=== PATIENT | female | born 1960 | race Caucasian/White ===

== ENCOUNTER 2022-08-23 11:31 | Emergency (ER) | payer OTHER ==
--- OUTSIDE RECORDS SUMMARY | 2022-08-23 11:35 | XMS REPORT | Continuity of Care Document ---
:1960 Author Organization [facility] t Address [address] [place] [address] [place] [id number] Care Team Providers Name Role Phone PCP, PATIENT DOES NOT HAVE A Primary Care Physician Unavaila Minna Patino Attending Clinician Unavailable RHIANNA BAUER Attending Clinician Unavailable Rhianna Michael Attending Clinician Doctor Unassigned, Dike Attending Clinician Unavailable Mellissa WILLS Attending Clinician Unavailable Mellissa Floyd Attending Clinician RHIANNA BAUER Admitting Clinician Unavailable Payers Payer Name Policy Type Policy Number Effective Date Expiration Date S ource [place]ICAID [place] [id number] 2021 00:00:00 Problems Condition Condition Condition Status Onset Resolution Last Treating Co mments Source Name Details Category Date Date Treatment Clinician Date [id number] Degenerati Problem Co mmon ve joint Spirit disease of - CHI low back [facility] [id number] Hx of iron Problem Co mmon deficiency Spirit anemia [facility] History of History of Problem C ommon asthma asthma [facility] Seasonal Chronic Problem Common allergic seasonal Spirit rhinitis allergic - CHI rhinitis [facility] [id number] Primary Problem Common hypertensi Spirit on [facility] [id number] Hyperlipid Problem Co mmon emia, Spirit [facility] [id number] Reactive Problem Commo n depression [facility] No known No known Disease Unive rs active active ity of problems problems [facility] Allergies, Adverse Reactions, Alerts Allergy Allergy Status Severity Reaction(s) Onset Inactive Treating Comm ents Source Name Type Date Date Clinician NAPROXEN DRUG Active Swelling Univer s INGREDI 3-15 ity of 00:00: [place] [facility] Naproxen Propensi Active Swelling Univ ers ty to 315 ity of adverse 00:00: [place] reaction [facility] PENICILL Drug Active Anaphylaxis Uni vers INS Class 3 ity of 00:00: [facility] MORPHINE DRUG Active N/V Univers INGREDI 05-31 ity of 00:00: [facility] Morphine Propensi Active Nausea Univer s ty to and/or 05-31 ity of adverse Vomiting 00:00: [place] reaction [facility] Penicill Propensi Active Anaphylaxis U nivers ins ty to 02 ity of adverse 00:00: [place] reaction 00 [facility] NO KNOWN Drug Active Univers ALLERGIE Class ity of S [facility] [id number] Drug Active shortness of Co mmon 85 allergy breath [facility] morphine morphine Active stomach Commo n upset [facility] Social History Social Habit Start Date Stop Date Quantity Comments Source History of Tobacco Current Smoker Co mmon [facility] Use [facility] Sex Assigned At Common Sp iesha - [facility] Exposure to Not sure [facility] SARS-CoV-2 (event) [facility] Branch Smoking Status Start Date Stop Date Source Unknown if ever smoked [facility] Current Smoker 2022-04-05 00:00:00 Common Spir t [facility] Medications Ordered Filled Start Stop Current Ordering Indication Dosage Frequency Signature Comments Components Source Medication Medication Date Date Medication? Clinician (SIG) Name Name Albuterol Albuterol No 1{puff_ 6xD Albuterol Sulfate HFA Sulfate HFA 1-05 as_need Sulfate 108 (90 108 (90 00:00: ed} HFA 108 Base) Base) 00 (90 Base) MCG/ACT MCG/ACT MCG/ACT Varenicline Varenicline 2022- No BID Vareniclin Tartrate 1 Tartrate 1 04-05 e Tartrate MG MG 00:00: 00:00 1 MG 00 :00 Varenicline Varenicline 0 2022- No Vareniclin Tartrate Tartrate 04-05 e Tartrate 0.5 MG X 11 0.5 MG X 11 00:00: 00:00 0.5 MG X & 1 MG X 42 & 1 MG X 42 00 :00 11 & 1 MG X 42 Sertraline Sertraline 2021-0 No 1{table QD Sertraline HCl 25 MG HCl 25 MG 6-13 t} HCl 25 MG 00:00: 00 Sertraline Sertraline 2021-0 No 1{table QD Sertraline HCl 25 MG HCl 25 MG 6-13 t} HCl 25 MG 00:00: 00 Sertraline Sertraline 2021-0 No 1{table QD Sertraline HCl 25 MG HCl 25 MG 6-13 t} HCl 25 MG 00:00: 00 Sertraline Sertraline 2021-0 No 1{table QD Sertraline HCl 25 MG HCl 25 MG 6-13 t} HCl 25 MG 00:00: 00 Sertraline Sertraline 2021-0 No 1{table QD Sertraline HCl 25 MG HCl 25 MG 6-13 t} HCl 25 MG 00:00: 00 Sertraline Sertraline 2021-0 No 1{table QD Sertraline HCl 25 MG HCl 25 MG 6-13 t} HCl 25 MG 00:00: 00 Sertraline Sertraline 2021-0 No 1{table QD Sertraline HCl 25 MG HCl 25 MG 6-13 t} HCl 25 MG 00:00: 00 Cetirizine Cetirizine 2021-0 No 1{table QD Cetirizine HCl 10 MG HCl 10 MG 6-02 t} HCl 10 MG 00:00: 00 Rosuvastati Rosuvastati 2021-0 No 1{table QD Rosuvastat n Calcium n Calcium -02 t} in Calcium 40 MG 40 MG 00:00: 40 MG 00 hydroCHLORO hydroCHLORO 2021-0 No 1{capsu QD hydroCHLOR thiazide thiazide 6-02 le_in_t Othiazide 12.5 MG 12.5 MG 00:00: he_morn 12.5 MG 00 ing} Cetirizine Cetirizine 2021-0 No 1{table QD Cetirizine HCl 10 MG HCl 10 MG 6-02 t} HCl 10 MG 00:00: 00 Rosuvastati Rosuvastati 2021-0 No 1{table QD Rosuvastat n Calcium n Calcium 6-02 t} in Calcium 40 MG 40 MG 00:00: 40 MG 00 hydroCHLORO hydroCHLORO 2021-0 No 1{capsu QD hydroCHLOR thiazide thiazide 6-02 le_in_t Othiazide 12.5 MG 12.5 MG 00:00: he_morn 12.5 MG 00 ing} hydroCHLORO hydroCHLORO 2021-0 No 1{capsu QD hydroCHLOR thiazide thiazide 6-02 le_in_t Othiazide 12.5 MG 12.5 MG 00:00: he_morn 12.5 MG 00 ing} Rosuvastati Rosuvastati 2021-0 No 1{table Rosuvastat n Calcium n Calcium 6-02 t} in Calcium 40 MG 40 MG 00:00: 40 MG 00 Cetirizine Cetirizine 2021-0 No 1{table QD Cetirizine HCl 10 MG HCl 10 MG 6-02 t} HCl 10 MG 00:00: 00 hydroCHLORO hydroCHLORO 2021-0 No 1{capsu QD hydroCHLOR thiazide thiazide 6-02 le_in_t Othiazide 12.5 MG 12.5 MG 00:00: he_morn 12.5 MG 00 ing} Rosuvastati Rosuvastati 2021-0 No 1{table Rosuvastat n Calcium n Calcium 6-02 t} in Calcium 40 MG 40 MG 00:00: 40 MG 00 Cetirizine Cetirizine 2021-0 No 1{table QD Cetirizine HCl 10 MG HCl 10 MG 6-02 t} HCl 10 MG 00:00: 00 hydroCHLORO hydroCHLORO 2021-0 No 1{capsu QD hydroCHLOR thiazide thiazide 6-02 le_in_t Othiazide 12.5 MG 12.5 MG 00:00: he_morn 12.5 MG 00 ing} Cetirizine Cetirizine 2021-0 No 1{table QD Cetirizine HCl 10 MG HCl 10 MG 6-02 t} HCl 10 MG 00:00: 00 Rosuvastati Rosuvastati 2021-0 No 1{table Rosuvastat n Calcium n Calcium 6-02 t} in Calcium 40 MG 40 MG 00:00: 40 MG 00 Cetirizine Cetirizine 2021-0 No 1{table QD Cetirizine HCl 10 MG HCl 10 MG 6-02 t} HCl 10 MG 00:00: 00 Rosuvastati Rosuvastati 2021-0 No 1{table Rosuvastat n Calcium n Calcium 6-02 t} in Calcium 40 MG 40 MG 00:00: 40 MG 00 Cetirizine Cetirizine 2021-0 No 1{table QD Cetirizine HCl 10 MG HCl 10 MG 6-02 t} HCl 10 MG 00:00: 00 Rosuvastati Rosuvastati 2021-0 No 1{table QD Rosuvastat n Calcium n Calcium 6-02 t} in Calcium 40 MG 40 MG 00:00: 40 MG 00 hydroCHLORO hydroCHLORO 2021-0 No 1{capsu QD hydroCHLOR thiazide thiazide 6-02 le_in_t Othiazide 12.5 MG 12.5 MG 00:00: he_morn 12.5 MG 00 ing} Cetirizine Cetirizine 2021-0 No 1{table QD Cetirizine HCl 10 MG HCl 10 MG 6-02 t} HCl 10 MG 00:00: 00 Rosuvastati Rosuvastati 2021-0 No 1{table QD Rosuvastat n Calcium n Calcium 6-02 t} in Calcium 40 MG 40 MG 00:00: 40 MG 00 hydroCHLORO hydroCHLORO 2021-0 No 1{capsu QD hydroCHLOR thiazide thiazide 6-02 le_in_t Othiazide 12.5 MG 12.5 MG 00:00: he_morn 12.5 MG 00 ing} Cetirizine Cetirizine 2021-0 No 1{table QD Cetirizine HCl 10 MG HCl 10 MG 6-02 t} HCl 10 MG 00:00: 00 Rosuvastati Rosuvastati 2021-0 No 1{table QD Rosuvastat n Calcium n Calcium 6-02 t} in Calcium 40 MG 40 MG 00:00: 40 MG 00 hydroCHLORO hydroCHLORO 2-0 No 1{capsu QD hydroCHLOR thiazide thiazide 6-02 le_in_t Othiazide 12.5 MG 12.5 MG 00:00: he_morn 12.5 MG 00 ing} Lisinopril Lisinopril 2-0 No 1{table QD Lisinopril 20 MG 20 MG 5-18 t} 20 MG 00:00: 00 Lisinopril Lisinopril 2022-0 No 1{table QD Lisinopril 20 MG 20 MG 5-18 t} 20 MG 00:00: 00 Lisinopril Lisinopril 2022-0 No 1{table QD Lisinopril 20 MG 20 MG 5-18 t} 20 MG 00:00: 00 Lisinopril Lisinopril 2022-0 No 1{table QD Lisinopril 20 MG 20 MG 5-18 t} 20 MG 00:00: 00 Lisinopril Lisinopril 2022-0 No 1{table QD Lisinopril 20 MG 20 MG 5-18 t} 20 MG 00:00: 00 Lisinopril Lisinopril 2022-0 No 1{table QD Lisinopril 20 MG 20 MG 5-18 t} 20 MG 00:00: 00 Lisinopril Lisinopril 2022-0 No 1{table QD Lisinopril 20 MG 20 MG 5-18 t} 20 MG 00:00: 00 Lisinopril Lisinopril 2022-0 No 1{table QD Lisinopril 20 MG 20 MG 5-18 t} 20 MG 00:00: 00 Lisinopril Lisinopril 2022-0 No 1{table QD Lisinopril 20 MG 20 MG 5-18 t} 20 MG 00:00: 00 Lisinopril Lisinopril 2022-0 No 1{table QD Lisinopril 20 MG 20 MG 5-18 t} 20 MG 00:00: 00 Lisinopril Lisinopril 2022-0 No 1{table QD Lisinopril 20 MG 20 MG 5-18 t} 20 MG 00:00: 00 naproxen 2022-0 2022- No [id number] 500mg Take 1 Univers (NAPROSYN) [id number] tablet by ity of 500 mg 00:00: 00:00 mouth 2 [place] tablet 00 :00 (two) Medical times Branch daily with meals. Tylenol 325 Tylenol 325 No 2{table 6xD Tylenol MG MG ts_as_n 325 MG eeded} Ibuprofen Ibuprofen No TID Ibuprofen 200 MG 200 MG 200 MG Kate Back Kate Back No [facility] Back & Body Pain & Body Pain & Body Ex St Ex St Pain Ex St 500-32.5 MG 500-32.5 MG 500-32.5 MG Tylenol 325 Tylenol 325 No 2{table 6xD Tylenol MG MG ts_as_n 325 MG eeded} Ibuprofen Ibuprofen No TID Ibuprofen 200 MG 200 MG 200 MG Kate Back Kate Back No [facility] Back & Body Pain & Body Pain & Body Ex St Ex St Pain Ex St 500-32.5 MG 500-32.5 MG 500-32.5 MG Tylenol 325 Tylenol 325 No 2{table 6xD Tylenol MG MG ts_as_n 325 MG eeded} Ibuprofen Ibuprofen No TID Ibuprofen 200 MG 200 MG 200 MG Kate Back Kate Back No [facility] Back & Body Pain & Body Pain & Body Ex St Ex St Pain Ex St 500-32.5 MG 500-32.5 MG 500-32.5 MG Tylenol 325 Tylenol 325 No 2{table 6xD Tylenol MG MG ts_as_n 325 MG eeded} Kate Back Kaet Back No [facility] Back & Body Pain & Body Pain & Body Ex St Ex St Pain Ex St 500-32.5 MG 500-32.5 MG 500-32.5 MG Ibuprofen Ibuprofen No TID Ibuprofen 200 MG 200 MG 200 MG Tylenol 325 Tylenol 325 No 2{table 6xD Tylenol MG MG ts_as_n 325 MG eeded} Sertraline Sertraline No 1{table QD Sertraline HCl 25 MG HCl 25 MG t} HCl 25 MG Ibuprofen Ibuprofen No TID Ibuprofen 200 MG 200 MG 200 MG Kate Back Kate Back No [facility] Back & Body Pain & Body Pain & Body Ex St Ex St Pain Ex St 500-32.5 MG 500-32.5 MG 500-32.5 MG hydroCHLORO hydroCHLORO No hydroCHLOR thiazide thiazide Othiazide 12.5 MG 12.5 MG 12.5 MG Tylenol 325 Tylenol 325 No 2{table 6xD Tylenol MG MG ts_as_n 325 MG eeded} Ibuprofen Ibuprofen No TID Ibuprofen 200 MG 200 MG 200 MG Kate Back Kate Back No [facility] Back & Body Pain & Body Pain & Body Ex St Ex St Pain Ex St 500-32.5 MG 500-32.5 MG 500-32.5 MG Sertraline Sertraline No 1{table QD Sertraline HCl 25 MG HCl 25 MG t} HCl 25 MG Escitalopra Escitalopra No Escitalopr m Oxalate 5 m Oxalate 5 am Oxalate MG MG 5 MG Tylenol 325 Tylenol 325 No 2{table 6xD Tylenol MG MG ts_as_n 325 MG eeded} Ibuprofen Ibuprofen No TID Ibuprofen 200 MG 200 MG 200 MG Kate Back Kate Back No [facility] & Body Pain & Body Pain & Body Ex St Ex St Pain Ex St 500-32.5 MG 500-32.5 MG 500-32.5 MG Tylenol 325 Tylenol 325 No 2{table 6xD Tylenol MG MG ts_as_n 325 MG eeded} Ibuprofen Ibuprofen No TID Ibuprofen 200 MG 200 MG 200 MG Kate Back Kate Back No [facility] Back & Body Pain & Body Pain & Body Ex St Ex St Pain Ex St 500-32.5 MG 500-32.5 MG 500-32.5 MG Tylenol 325 Tylenol 325 No 2{table 6xD Tylenol MG MG ts_as_n 325 MG eeded} Ibuprofen Ibuprofen No TID Ibuprofen 200 MG 200 MG 200 MG Kate Back Kate Back No [facility] Body Pain & Body Pain & Body Ex St Ex St Pain Ex St 500-32.5 MG 500-32.5 MG 500-32.5 MG Tylenol 325 Tylenol 325 No 2{table 6xD Tylenol MG MG ts_as_n 325 MG eeded} Ibuprofen Ibuprofen No TID Ibuprofen 200 MG 200 MG 200 MG Kate Back Kate Back No [facility] Pain & Body Pain & Body Ex St Ex St Pain Ex St 500-32.5 MG 500-32.5 MG 500-32.5 MG Tylenol 325 Tylenol 325 No 2{table 6xD Tylenol MG MG ts_as_n 325 MG eeded} Ibuprofen Ibuprofen No TID Ibuprofen 200 MG 200 MG 200 MG Kate Back Kate Back No [facility] Body Pain & Body Ex St Ex St Pain Ex St 500-32.5 MG 500-32.5 MG 500-32.5 MG Immunizations Ordered Immunization Filled Immunization Date Status Commen ts Source Name Name Flucelvax - single Flucelvax - single 2022-04-05 Completed [facility] dose syringe dose syringe 15:48:00 - [facility] Pfizer COVID-19 Pfizer COVID-19 2021-03-21 Completed Comm on Spirit Vaccine Vaccine 14:18:00 [facility] Pfizer COVID-19 Pfizer COVID-19 2021-03-21 Completed [facility] Vaccine Vaccine 14:18:00 [facility] Pfizer COVID-19 Pfizer COVID-19 2021-03-21 Completed [facility] Vaccine Vaccine 14:18:00 [facility] Pfizer COVID-19 Pfizer COVID-19 2021-03-21 Completed [facility] Vaccine Vaccine 14:18:00 [facility] Pfizer COVID-19 Pfizer COVID-19 2021-03-21 Completed [facility] Vaccine Vaccine 14:18:00 [facility] Pfizer COVID-19 Pfizer COVID-19 2021-03-21 Completed [facility] Vaccine Vaccine 14:18:00 - [facility] Pfizer COVID-19 Pfizer COVID-19 2021-03-21 Completed [facility] Vaccine Vaccine 14:18:00 [facility] Pfizer COVID-19 Pfizer COVID-19 2021-03-21 Completed [facility] Vaccine Vaccine 14:18:00 [facility] Pfizer COVID-19 Pfizer COVID-19 2021-03-21 Completed [facility] Vaccine Vaccine 14:18:00 [facility] Pfizer COVID-19 Pfizer COVID-19 2021-03-21 Completed [facility] Vaccine Vaccine 14:18:00 [facility] Pfizer COVID-19 Pfizer COVID-19 2021-03-21 Completed Comm on [facility] Vaccine Vaccine 14:18:00 [facility] COVID-19 Vaccine COVID-19 Vaccine 2020-06-09 Completed Co mmon [facility] ([employer]) ([employer]) 14:17:00 [facility] COVID-19 Vaccine COVID-19 Vaccine 2020-06-09 Completed Co mmon [facility] ([facility]) ([employer]) 14:17:00 [facility] COVID-19 Vaccine COVID-19 Vaccine 2020-06-09 Completed Co mmon [facility] ([facility]) ([employer]) 14:17:00 [facility] COVID-19 Vaccine COVID-19 Vaccine 2020-06-09 Completed Co mmon [facility] ([facility]) ([employer]) 14:17:00 [facility] COVID-19 Vaccine COVID-19 Vaccine 2020-06-09 Completed Co mmon [facility] ([facility]) ([facility]) 14:17:00 [facility] COVID-19 Vaccine COVID-19 Vaccine 2020-06-09 Completed Co mmon [facility] ([facility]) ([facility]) 14:17:00 [facility] COVID-19 Vaccine COVID-19 Vaccine 2020-06-09 Completed Co mmon [facility] ([facility]) ([facility]) 14:17:00 [facility] COVID-19 Vaccine COVID-19 Vaccine 2020-06-09 Completed Co mmon [facility] ([facility]) ([facility]) 14:17:00 - [facility] COVID-19 Vaccine COVID-19 Vaccine 2020-06-09 Completed Co mmon [facility] ([facility]) ([facility]) 14:17:00 [facility] COVID-19 Vaccine COVID-19 Vaccine 2020-06-09 Completed Co mmon [facility] ([facility]) ([facility]) 14:17:00 [facility] COVID-19 Vaccine COVID-19 Vaccine 2020-06-09 Completed Co mmon [facility] ([facility]) ([facility]) 14:17:00 [facility] Vital Signs Vital Name Observation Time Observation Value Comments Source height 2022 15:40:00 60 [in_i] [facility] weight 2022 15:40:00 213.8 [lb_av] [facility] temperature 2022 15:40:00 97.2 [degF] [facility] bmi 2022 15:40:00 41.75 kg/m2 [facility] oximetry 2022 15:40:00 99 % [facility] respiratory rate 2022 15:40:00 17 /min Comm on [facility] blood pressure 2022 15:40:00 128 mm[Hg] [facility] systolic [facility] blood pressure 2022 15:40:00 72 mm[Hg] [facility] diastolic [facility] weight 2021-09-11 09:00:00 216.0 [lb_av] [facility] bmi 2021-09-11 09:00:00 42.18 kg/m2 [facility] height 2021-09-11 09:00:00 [facility] height 2021-09-11 14:20:00 [facility] weight 2021-09-11 14:20:00 216 [lb_av] [facility] bmi 2021-09-11 14:20:00 42.18 kg/m2 [facility] height 2021-08-31 11:20:00 60 [in_i] [facility] weight 2021-08-31 11:20:00 215 [lb_av] [facility] 2021-08-31 11:20:00 41.98 kg/m2 [facility] height 2021-08-16 13:20:00 [facility] weight 2021-08-16 13:20:00 216.8 [lb_av] [facility] temperature 2021-08-16 13:20:00 97.7 [degF] [facility] bmi 2021-08-16 13:20:00 42.34 kg/m2 [facility] oximetry 2021-08-16 13:20:00 94 % [facility] respiratory rate 2021-08-16 13:20:00 18 /min [facility] on [facility] blood pressure 2021-08-16 13:20:00 152 mm[Hg] [facility] - systolic [facility] blood pressure 2021-08-16 13:20:00 102 mm[Hg] [facility] - diastolic [facility] Systolic blood 2021-06-13 21:43:00 168 mm[Hg] Univer sity of pressure [facility] Diastolic blood 2021-06-13 21:43:00 88 mm[Hg] Unive rsity of pressure [facility] Heart rate 2021-06-13 21:43:00 88 /min Universi ty of [facility] Respiratory rate 2021-06-13 21:43:00 18 /min [facility] in 2021-06-13 21:43:00 100 /min University of Arterial blood by [facility] Pulse oximetry Branch Body temperature 2021-06-13 18:54:[address] [facility] Body height 2021-06-13 18:54:00 152.4 cm Universi ty [facility] Body weight 2021-06-13 18:54:00 97.523 kg Universi [facility] BMI 2021-06-13 18:54:00 41.99 kg/m2 Universi ty [facility] Systolic blood 2021-05-31 15:09:00 160 mm[Hg] Univer sity of [facility] Diastolic blood 2021-05-31 15:09:00 116 mm[Hg] Unive rsity of [facility] Heart rate 2021-05-31 15:09:00 92 /min Universi ty [facility] Body temperature 2021-05-31 15:09:[address] [facility] Respiratory rate 2021-05-31 15:09:00 18 /min [facility] Body weight 2021-05-31 15:09:00 98.158 kg Universi [facility] Oxygen saturation in 2021-05-31 15:09:00 100 /min University of Arterial blood by [facility] Pulse oximetry Branch Procedures Procedure Date / Time Performed Performing Clinician Sourc e XR HIPS 2 VW RIGHT 2021-06-13 20:07:51 Rhianna Bauer [facility] CONSENT/REFUSAL FOR 2021-06-13 18:48:35 Doctor [facility]igned, [facility] AND Name Medical Branch TREATMENT Encounters Start End Encounter Admission Attending Care Care Encounter Source Date/Time Date/Time Type Type Clinicians Facility Department ID 2022-07-17 Outpatient Riccardo, STBRI STLMLC [id number] Common 14:16:02 Minna [address] [facility] 2022-04-05 Outpatient White, STDANILC STLMLC [id number] Common 15:36:01 Minna 67951 [facility] 2022-04-03 Outpatient White, STLMLC STLMLC [id number] Common 14:28:01 Minna 12127 [facility] 2022-03-22 Outpatient White, STDANILC STLMLC [id number] Common 10:03:01 Minna [facility] 2022-03-05 Outpatient White, STDANILC STLMLC [id number] Common 09:59:02 Minna [facility] 2021-10-17 Outpatient White, STLMLC STLMLC [id number] Common 08:38:02 Minna [facility] 2021-09-06 Outpatient White, STLMLC STLMLC [id number] Common 14:03:01 Minna [facility] 2021-08-16 Outpatient Riccardo, STLMLC STLMLC [id number] Common 12:55:01 Minna [facility] 2022 2022 OFFICE STLMLC STLMLC [id number] Co mmon 00:00:00 00:00:00 VISIT [facility] 4 [facility] 2022-02-05 2022-02-05 (TEL) STLMLC STLMLC [id number] Co mmon 00:00:00 00:00:00 [facility] 2021-10-15 2021-10-15 (WEB) STLMLC STLMLC [id number] Co mmon 00:00:00 00:00:00 [facility] 2021-09-29 2021-09-29 (WEB) STLMLC STLMLC [id number] Co mmon 00:00:00 00:00:00 [facility] 2021-09-20 2021-09-20 (TEL) STLMLC STLMLC [id number] Co mmon 00:00:00 00:00:00 [facility] 2021-09-11 2021-09-11 (TEL) STLMLC STLMLC [id number] Co mmon 00:00:00 00:00:00 [facility] 2021-09-11 2021-09-11 SUB ANNUAL STLMLC STLMLC [id number] Common 00:00:00 00:00:00 MCR [facility] VISIT [facility] 2021-09-11 2021-09-11 OFFICE STLMLC STLMLC [id number] Co mmon 00:00:00 00:00:00 VISIT EST Spir it PT LEVEL 3 - [facility] 2021-08-31 2021-08-31 OFFICE STLMLC STLMLC [id number] Co mmon 00:00:00 00:00:00 VISIT EST Spir it PT LEVEL 3 - [facility] 2021-08-25 2021-08-25 (TEL) STLMLC STLMLC [id number] Co mmon 00:00:00 00:00:00 [facility] 2021-08-16 2021-08-16 OFFICE STLMLC STLMLC [id number] Co mmon 00:00:00 00:00:00 VISIT NEW Spir it PT LEVEL 4 - [facility] 2021-06-13 2021-06-13 Emergency X JUANCARLOS [facility] ERT [id number] Univers 13:56:00 16:54:00 RHIANNA nogueira [facility] 2021-06-13 2021-06-13 Emergency Juancarlos [facility] [id number] Univers 13:56:00 16:54:00 Rhianna Kong PIERRE PART [id number] i ty [facility] [id number] [facility] [phone] [place] [address] Branch 2021-06-13 2021-06-13 Orders Doctor SOMMER [id number] Univers 00:00:00 00:00:00 Only Unassigned, HE [id number] ity of Dike [facility] [id number] [facility] [phone] [place] [address] Branch 2021-05-31 2021-05-31 Emergency X Mellissa WILLS [facility] ERT [id number] Univers 09:11:00 12:05:00 ity of [facility] 2021-05-31 2021-05-31 Emergency Mellissa Wills [facility] [id number] Univers 09:11:00 12:05:00 Shirin ENCINAS [id number] i ty of [place] [id number] [facility] [phone] [place] [address] Branch Results This patient has no known results.
[2022-08-23] MEDS ORDERED: IBUPROFEN 400 MG TAB ONE (12:01)
[2022-08-23] MEDS ORDERED: HYDROCODONE/APAP 5/325 MG TAB ONE (12:01)
[2022-08-23 12:26] LABS: SARS-CoV-2 Antigen Rapid Res Negative (Negative)
[2022-08-23] MEDS ORDERED: AZITHROMYCIN 250 MG TAB ONE (12:44)
--- NOTE | 2022-08-23 12:47 | ER ---
Nurse's Notes [facility] Name: Marilu Walters Age: 62 yrs Sex: Female : 1960 Arrival Date: 08/23/2022 Time: 11:31 Bed 13 Private MD: Diagnosis: Streptococcal pharyngitis;Acute bronchiolitis due to respiratory syncytial virus Presentation: 08/23 11:39 Chief complaint: Patient states: Body aches, malaise, sore throat, congested "not nj1 really coughing". Coronavirus screen: Vaccine status: Patient reports receiving the 2nd dose of the covid vaccine. Ebola Screen: Patient denies travel to an Ebola-affected area in the 21 days before illness onset. Initial Sepsis Screen: Does the patient meet any 2 criteria? HR > 90 bpm. No. Patient's initial sepsis screen is negative. Does the patient have a suspected source of infection? No. Patient's initial sepsis screen is negative. Risk Assessment: Do you want to hurt yourself or someone else? Patient reports no desire to harm self or others. Onset of symptoms was August 22, 2022 at 23:59. 11:39 Acuity: ANTONY 3 nj1 11:39 Method Of Arrival: Ambulatory nj1 Historical: - Allergies: 11:45 PENICILLINS; nj1 11:45 Morphine; nj1 - PMHx: 11:45 Hypertensive disorder; Depressive disorder; nj1 - PSHx: 11:46 Tubal ligation; Hysterectomy; R knee meniscus repair; Back surgery; nj1 - Immunization history:: Client reports receiving the 2nd dose of the Covid vaccine. - Social history:: Smoking status: Patient/guardian denies using tobacco, Stopped _ months ago 6. Screenin:07 [place] ED Fall Risk Assessment (Adult) History of falling in the last 3 months, vg1 including since admission No falls in past 3 months (0 pts). Abuse screen: Denies threats or abuse. Denies injuries from another. Nutritional screening: No deficits noted. Tuberculosis screening: No symptoms or risk factors identified. Assessment: 12:07 General: Appears in no apparent distress. uncomfortable, Behavior is calm, cooperative. vg1 Pain: Complains of pain in generalize body Pain currently is 10 out of 10 on a pain scale. Pain began at midnight. Neuro: Level of Consciousness is awake, alert, obeys commands, Oriented to person, place, time, situation. Cardiovascular: Patient's skin is warm and dry. Respiratory: Airway is patent Respiratory effort is even, unlabored, Breath sounds are clear bilaterally. Derm: Skin is pink, warm \\T\\ dry. Musculoskeletal: Circulation, motion, and sensation intact. 13:13 Reassessment: Patient appears in no apparent distress at this time. Patient and/or vg1 family updated on plan of care and expected duration. Pain level reassessed. Patient is alert, oriented x 3, equal unlabored respirations, skin warm/dry/pink. Patient states feeling better. Vital Signs: 11:39 BP 112 / 91; Pulse 124; Resp 20; Temp 100.2(O); Pulse Ox 95% ; Weight 95.25 kg; Height nj1 5 ft. 0 in. ; Pain 10/10; 12:08 BP 113 / 66; Pulse 111; Resp 20; Pulse Ox 97% on R/A; vg1 13:13 BP 123 / 64; Pulse 100; Resp 16; Pulse Ox 97% on R/A; vg1 11:39 Body Mass Index 41.01 (95.25 kg, 152.4 cm) nj1 11:39 Pain Scale: Adult nc1 ED Course: 11:34 Patient arrived in ED. mr 11:37 Deejay Bhakta MD is Attending Physician. bs3 11:37 [facility]i Acu[facility] F[facility]-C [facility]. snw 11:45 Triage completed. nj1 11:47 Arm band placed on right wrist. nj1 11:51 Maureen Sainz, RN is Primary Nurse. vg1 12:04 Strep Sent. vg1 12:04 SARS RAPID Sent. vg1 12:04 RSV Sent. vg1 12:04 Flu Sent. vg1 12:07 Patient has correct armband on for positive identification. Bed in low position. Call vg1 light in reach. Side rails up X 1. Door closed. Lights dimmed. 12:07 No provider procedures requiring assistance completed. Patient did not have IV access vg1 during this emergency room visit. Administered Medications: 12:00 Drug: HYDROcodone-acetaminophen PO 5 mg-325 mg 1 tabs Route: PO; vg1 13:13 Follow up: Response: Temperature is decreased; Pain is decreased vg1 12:00 Drug: Ibuprofen PO 400 mg Route: PO; vg1 13:13 Follow up: Response: Temperature is decreased; Pain is decreased vg1 12:39 Drug: AZITHromycin PO 500 mg Route: PO; kc6 13:12 Follow up: Response: No adverse reaction vg1 Medication: 12:07 VIS not applicable for this client. vg1 Outcome: 12:46 Discharge ordered by . susana 13:13 Discharged to home ambulatory. vg1 13:13 Condition: good 13:13 Discharge instructions given to patient, Instructed on discharge instructions, follow up and referral plans. medication usage, Demonstrated understanding of instructions, follow-up care, medications, Prescriptions given X 4. 13:14 Patient left the ED. vg1 Signatures: Meri Acuña, JEWEL STRINGER-C JEWEL STRINGER-Csnw Sharon Ribera Victoria, RN RN vg1 Isis Perales RN RN kc6 Deejay Bhakta MD MD bs3 Elidia Winters RN RN nj1
--- NOTE | 2022-08-23 12:47 | EDPHYS ---
Physician Documentation [facility] Name: Marilu Walters Age: 62 yrs Sex: Female : 1960 Arrival Date: 08/23/2022 Time: 11:31 Bed 13 Private MD: ED Physician Deejay Bhakta HPI: 08/23 11:44 This 62 yrs old Female presents to ER via Unassigned with complaints of Flu Symptoms. snw 11:44 The patient or guardian reports flu symptoms, low-grade fever, myalgias, no appetite. snw Onset: The symptoms/episode began/occurred suddenly, at 00:00. Modifying factors: The symptoms are alleviated by nothing. the symptoms are aggravated by nothing. Severity of symptoms: At their worst the symptoms were moderate. The patient has not experienced similar symptoms in the past. It is unknown whether or not the patient has recently seen a physician. grandson began having fever three days ago. Historical: - Allergies: 11:45 PENICILLINS; nj1 11:45 Morphine; nj1 - PMHx: 11:45 Hypertensive disorder; Depressive disorder; nj1 - PSHx: 11:46 Tubal ligation; Hysterectomy; R knee meniscus repair; Back surgery; nj1 - Immunization history:: Client reports receiving the 2nd dose of the Covid vaccine. - Social history:: Smoking status: Patient/guardian denies using tobacco, Stopped _ months ago 6. ROS: 11:44 Eyes: Negative for injury, pain, redness, and discharge. snw 11:44 Neck: Negative for injury, pain, and swelling, Cardiovascular: Negative for chest pain, palpitations, and edema, Respiratory: Negative for shortness of breath, cough, wheezing, and pleuritic chest pain, Abdomen/GI: Negative for abdominal pain, nausea, vomiting, diarrhea, and constipation, Back: Negative for injury and pain, : Negative for injury, bleeding, discharge, and swelling, MS/Extremity: Negative for injury and deformity, Skin: Negative for injury, rash, and discoloration, Neuro: Negative for headache, weakness, numbness, tingling, and seizure, Psych: Negative for depression, anxiety, suicide ideation, homicidal ideation, and hallucinations. 11:44 Constitutional: Positive for body aches, chills, fever, malaise. 11:44 ENT: Positive for sore throat. Exam: 11:42 Head/Face: Normocephalic, atraumatic. Eyes: Pupils equal round and reactive to light, snw extra-ocular motions intact. Lids and lashes normal. Conjunctiva and sclera are non-icteric and not injected. Cornea within normal limits. Periorbital areas with no swelling, redness, or edema. 11:42 Neck: Trachea midline, no thyromegaly or masses palpated, and no cervical lymphadenopathy. Supple, full range of motion without nuchal rigidity, or vertebral point tenderness. No Meningismus. Chest/axilla: Normal chest wall appearance and motion. Nontender with no deformity. No lesions are appreciated. 11:42 Respiratory: Lungs have equal breath sounds bilaterally, clear to auscultation and percussion. No rales, rhonchi or wheezes noted. No increased work of breathing, no retractions or nasal flaring. Abdomen/GI: Soft, non-tender, with normal bowel sounds. No distension or tympany. No guarding or rebound. No evidence of tenderness throughout. Back: No spinal tenderness. No costovertebral tenderness. Full range of motion. Skin: Warm, dry with normal turgor. Normal color with no rashes, no lesions, and no evidence of cellulitis. MS/ Extremity: Pulses equal, no cyanosis. Neurovascular intact. Full, normal range of motion. Neuro: Awake and alert, GCS 15, oriented to person, place, time, and situation. Cranial nerves II-XII grossly intact. Motor strength 5/5 in all extremities. Sensory grossly intact. Cerebellar exam normal. Normal gait. Psych: Awake, alert, with orientation to person, place and time. Behavior, mood, and affect are within normal limits. 11:42 Constitutional: The patient appears alert, awake, anxious, febrile, uncomfortable. 11:42 ENT: External ear(s): are unremarkable, Ear canal(s): are normal, TM's: are normal, Nose: Nasal mucosa: edematous, Mouth: is normal, Posterior pharynx: erythema, that is moderate, Voice: is normal. 11:42 Cardiovascular: Rate: tachycardic, Rhythm: regular, Pulses: no pulse deficits are appreciated. Vital Signs: 11:39 BP 112 / 91; Pulse 124; Resp 20; Temp 100.2(O); Pulse Ox 95% ; Weight 95.25 kg; Height nj1 5 ft. 0 in. ; Pain 10/10; 12:08 BP 113 / 66; Pulse 111; Resp 20; Pulse Ox 97% on R/A; vg1 13:13 BP 123 / 64; Pulse 100; Resp 16; Pulse Ox 97% on R/A; vg1 11:39 Body Mass Index 41.01 (95.25 kg, 152.4 cm) nj1 11:39 Pain Scale: Adult nj1 MDM: 11:36 Patient medically screened. bs3 12:53 Differential diagnosis: bronchitis, flu, URI. Data interpreted: Pulse oximetry: on room snw air is 97 %. Interpretation: normal. Data reviewed: vital signs, nurses notes. I considered the following discharge prescriptions or medication management in the emergency department Medications were administered in the Emergency Department. See MAR. Counseling: I had a detailed discussion with the patient and/or guardian regarding: the historical points, exam findings, and any diagnostic results supporting the discharge/admit diagnosis, lab results, the need for outpatient follow up, for definitive care, to return to the emergency department if symptoms worsen or persist or if there are any questions or concerns that arise at home. Response to treatment: the patient's symptoms have mildly improved after treatment. Special discussion: Based on the history and exam findings, there is no indication for further emergent testing or inpatient evaluation. I discussed with the patient/guardian the need to see the primary care provider for further evaluation of the symptoms. 08/23 11:42 Order name: Flu; Complete Time: 12:46 snw 08/23 11:42 Order name: RSV; Complete Time: 12:46 snw 08/23 11:42 Order name: SARS RAPID; Complete Time: 12:28 snw 08/23 11:44 Order name: Strep; Complete Time: 12:28 snw Administered Medications: 12:00 Drug: HYDROcodone-acetaminophen PO 5 mg-325 mg 1 tabs Route: PO; vg1 13:13 Follow up: Response: Temperature is decreased; Pain is decreased vg1 12:00 Drug: Ibuprofen PO 400 mg Route: PO; vg1 13:13 Follow up: Response: Temperature is decreased; Pain is decreased vg1 12:39 Drug: AZITHromycin PO 500 mg Route: PO; kc6 13:12 Follow up: Response: No adverse reaction vg1 Disposition Summary: 08/23/22 12:46 Discharge Ordered Location: Home snw Condition: Stable snw Diagnosis - Streptococcal pharyngitis snw - Acute bronchiolitis due to respiratory syncytial virus snw Followup: snw - With: Emergency Department - When: As needed - Reason: Worsening of condition Followup: snw - With: Private Physician - When: 2 - 3 days - Reason: Recheck today's complaints, Continuance of care, Re-evaluation by your physician Discharge Instructions: - Discharge Summary Sheet snw - Respiratory Syncytial Virus Infection, Pediatric snw - Strep Throat, Adult snw - Rehydration, Adult snw Forms: - Work release form snw - Medication Reconciliation Form snw - Thank You Letter snw - Antibiotic Education snw - Prescription Opioid Use snw Prescriptions: - Prednisone 20 mg Oral Tablet - take 2 tablets by ORAL route once daily for 5 days; 10 tablet; Refills: 0, snw Product Selection Permitted - Pepcid 20 mg Oral Tablet - take 1 tablet by ORAL route once daily; 20 tablet; Refills: 0, Product snw Selection Permitted - promethazine 25 mg Oral Tablet - take 1 tablet by ORAL route every 6 hours As needed; 20 tablet; Refills: 0, snw Product Selection Permitted - Zithromax 500 mg Oral Tablet - take 1 tablet by ORAL route once daily for 5 days; 5 tablet; Refills: 0, snw Product Selection Permitted Signatures: Dispatcher [employer] Meri Lam FNP-C UPPER INSPECTOR-Csnw Maureen Sainz RN RN vg1 Isis Perales RN RN kc6 Deejay Bhakta MD MD bs3 Elidia Winters RN RN nj1
[2022-08-23 13:30] VITALS: TEMP 100.2
[2022-08-23 13:32] VITALS: O2SAT 97
[2022-08-23 13:34] VITALS: BP 123/64
== END 2022-08-23 13:14 | disposition home or self-care (01) ==
LOC: ER 11:31
DX: J02.0 Streptococcal pharyngitis (principal); J21.0 Acute bronchiolitis due to respiratory syncytial virus; I10 Essential (primary) hypertension; Z20.822 Contact with and (suspected) exposure to COVID-19; Z88.0 Allergy status to penicillin; Z88.5 Allergy status to narcotic agent
CPT/HCPCS: 36415; 87081; 87804; 87807; 87811; 99284

== ENCOUNTER 2022-09-09 17:53 | Observation (INO) | payer OTHER ==
--- OUTSIDE RECORDS SUMMARY | 2022-09-09 17:56 | XMS REPORT | Continuity of Care Document ---
:[address] [facility] t Address [address] [place] [address] [place] [id number] Care Team Providers Name Role Phone PCP, PATIENT DOES NOT HAVE A Primary Care Physician Unavaila Minna Patino Attending Clinician Unavailable RHIANNA BAUER Attending Clinician Unavailable Rhianna Michael Attending Clinician Doctor Unassigned, [place] Attending Clinician Unavailable Mellissa WILLS Attending Clinician Unavailable Mellissa Floyd Attending Clinician RHIANNA BAUER Admitting Clinician Unavailable Payers Payer Name Policy Type Policy Number Effective Date Expiration Date S ource [place] [id number] 2021 00:00:00 Problems Condition Condition Condition Status Onset Resolution Last Treating Co mments Source Name Details Category Date Date Treatment Clinician Date [id number] Degenerati Problem Co mmon ve joint Spirit disease of - [facility] low back [facility] [id number] Hx of iron Problem Co mmon deficiency Spirit anemia [facility] History of History of Problem C ommon asthma asthma [facility] Seasonal Chronic Problem Common allergic seasonal Spirit rhinitis allergic - [facility] rhinitis [facility] [id number] Primary Problem Common hypertensi Spirit on [facility] [id number] Hyperlipid Problem Co mmon emia, [facility] [id number] Reactive Problem Commo n depression [facility] No known No known Disease Unive rs active active ity of problems problems [facility] Allergies, Adverse Reactions, Alerts Allergy Allergy Status Severity Reaction(s) Onset Inactive Treating Comm ents Source Name Type Date Date Clinician NAPROXEN DRUG Active Swelling Univer s INGREDI 3-15 ity of 00:00: [place] 00 [facility] Naproxen Propensi Active Swelling Univ ers ty to 06-13 ity of adverse 00:00: [place] reaction [facility] PENICILL Drug Active Anaphylaxis Uni vers INS Class 05-31 ity of 00:00: [place] [facility] MORPHINE DRUG Active N/V Univers INGREDI 05-31 ity of 00:00: 00 [facility] Morphine Propensi Active Nausea Univer s ty to and/or 05-31 ity of adverse Vomiting 00:00: [place] reaction Medical [facility] Penicill Propensi Active Anaphylaxis U nivers ins ty to 05-31 ity of adverse 00:00: [place] reaction 00 [facility] NO KNOWN Drug Active Univers ALLERGIE Class ity of S [facility] [id number] Drug Active shortness of Co mmon 85 allergy breath [facility] morphine morphine Active stomach Commo n upset [facility] Social History Social Habit Start Date Stop Date Quantity Comments Source History of Tobacco Current Smoker Co mmon [facility] Use [facility] Sex Assigned At Common Sp iesha - [facility] Exposure to Not sure [facility] SARS-CoV-2 (event) [facility] Branch Smoking Status Start Date Stop Date Source Unknown if ever smoked [facility] Current Smoker 2022-04-05 00:00:[address] [facility] Medications Ordered Filled Start Stop Current Ordering [...] 00:00 1 MG 00 :00 Varenicline Varenicline 2022-0 3- No Vareniclin Tartrate Tartrate 04-05 e Tartrate [...] he_morn 12.5 MG 00 ing} Cetirizine Cetirizine 0 No 1{table QD Cetirizine HCl 10 MG [...] he_morn 12.5 MG 00 ing} hydroCHLORO hydroCHLORO 0 No 1{capsu QD hydroCHLOR thiazide thiazide 6-02 le_in_t Othiazide 12.5 MG 12.5 MG 00:00: he_morn 12.5 MG 00 ing} Rosuvastati Rosuvastati 2021-0 No 1{table Rosuvastat n Calcium n Calcium 6- t} in Calcium 40 MG 40 MG 00:00: 40 MG 00 Cetirizine Cetirizine 0 No 1{table QD Cetirizine HCl 10 MG HCl 10 MG 6-02 t} HCl 10 MG 00:00: 00 hydroCHLORO hydroCHLORO 2021-0 No 1{capsu QD hydroCHLOR thiazide thiazide 6-02 le_in_t Othiazide 12.5 MG 12.5 MG 00:00: he_morn 12.5 MG 00 ing} Rosuvastati Rosuvastati 2021-0 No 1{table Rosuvastat n Calcium n Calcium 6-02 t} in Calcium 40 MG 40 MG 00:00: 40 MG 00 Cetirizine Cetirizine 0 No 1{table QD Cetirizine HCl 10 MG HCl 10 MG 6-02 t} HCl 10 MG 00:00: 00 hydroCHLORO hydroCHLORO 2021-0 No 1{capsu QD hydroCHLOR thiazide thiazide 6-02 le_in_t Othiazide 12.5 MG 12.5 MG 00:00: he_morn 12.5 MG 00 ing} Cetirizine Cetirizine 0 No 1{table QD Cetirizine HCl 10 MG [...] MG 00:00: 40 MG 00 Cetirizine Cetirizine 0 No 1{table QD Cetirizine HCl 10 MG [...] he_morn 12.5 MG 00 ing} Cetirizine Cetirizine 0 No 1{table QD Cetirizine HCl 10 MG [...] he_morn 12.5 MG 00 ing} Cetirizine Cetirizine 0 No 1{table QD Cetirizine HCl 10 MG HCl 10 MG 6-02 t} HCl 10 MG 00:00: 00 Rosuvastati Rosuvastati 2021-0 No 1{table QD Rosuvastat n Calcium n Calcium 6-02 t} in Calcium 40 MG 40 MG 00:00: 40 MG 00 hydroCHLORO hydroCHLORO 2-0 No 1{capsu QD hydroCHLOR thiazide thiazide 08-31 le_in_t Othiazide 12.5 MG 12.5 MG 00:00: he_morn 12.5 MG 00 ing} Lisinopril Lisinopril 2022-0 No 1{table QD Lisinopril [...] MG 00:00: 00 naproxen 2022-0 2022- No [id number] 500mg Take 1 Univers (NAPROSYN) 3-15 03-15 9102 tablet by mirlande of 500 mg 00:00: 00:00 mouth 2 [...] MG ts_as_n 325 MG eeded} Kate Back Kate Back No Kate Back [...] Spirit dose syringe dose syringe 15:48:00 - [facility] Pfizer COVID-19 Pfizer COVID-19 2021-03-21 Completed Comm on Spirit Vaccine Vaccine 14:18:00 [facility] Pfizer COVID-19 Pfizer COVID-19 2021-03-21 Completed Comm on Spirit Vaccine Vaccine 14:18:00 [facility] Pfizer COVID-19 Pfizer COVID-19 2021-03-21 Completed Comm on Spirit Vaccine Vaccine 14:18:00 [facility] Pfizer COVID-19 Pfizer COVID-19 2021-03-21 Completed Comm on Spirit Vaccine Vaccine 14:18:00 [facility] Pfizer COVID-19 Pfizer COVID-19 2021-03-21 Completed Comm on Spirit Vaccine Vaccine 14:18:00 [facility] Pfizer COVID-19 Pfizer COVID-19 2021-03-21 Completed Comm on Spirit Vaccine Vaccine 14:18:00 - [facility] Pfizer COVID-19 Pfizer COVID-19 2021-03-21 Completed Comm on Spirit Vaccine Vaccine 14:18:00 [facility] Pfizer COVID-19 Pfizer COVID-19 2021-03-21 Completed Comm on Spirit Vaccine Vaccine 14:18:00 [facility] Pfizer COVID-19 Pfizer COVID-19 2021-03-21 Completed Comm on Spirit Vaccine Vaccine 14:18:00 [facility] Pfizer COVID-19 Pfizer COVID-19 2021-03-21 Completed Comm on Spirit Vaccine Vaccine 14:18:00 [facility] Pfizer COVID-19 Pfizer COVID-19 2021-03-21 Completed Comm on Spirit Vaccine Vaccine 14:18:00 [facility] COVID-19 Vaccine COVID-19 Vaccine 2020-06-09 Completed Co mmon Spirit ([place]) ([place]) 14:17:00 [facility] COVID-19 Vaccine COVID-19 Vaccine 2020-06-09 Completed Co mmon [facility] ([place]) ([place]) 14:17:00 - [facility] COVID-19 Vaccine COVID-19 Vaccine 2020-06-09 Completed Co mmon [facility] ([place] ([place]) 14:17:00 [facility] COVID-19 Vaccine COVID-19 Vaccine 2020-06-09 Completed Co mmon [facility] ([place] ([facility]) 14:17:00 [facility] COVID-19 Vaccine COVID-19 Vaccine 2020-06-09 Completed Co mmon [facility] ([place]) ([place]) 14:17:00 - [facility] COVID-19 Vaccine COVID-19 Vaccine 2020-06-09 Completed Co mmon [facility] ([place] ([facility]) 14:17:00 [facility] COVID-19 Vaccine COVID-19 Vaccine 2020-06-09 Completed Co mmon [facility] ([place] ([place]) 14:17:00 [facility] COVID-19 Vaccine COVID-19 Vaccine 2020-06-09 Completed Co mmon [facility] ([place]) ([place]) 14:17:00 - [facility] COVID-19 Vaccine COVID-19 Vaccine 2020-06-09 Completed Co mmon [facility] ([place] ([facility]) 14:17:00 [facility] COVID-19 Vaccine COVID-19 Vaccine 2020-06-09 Completed Co mmon [facility] ([place] ([facility]) 14:17:00 [facility] COVID-19 Vaccine COVID-19 Vaccine 2020-06-09 Completed Co mmon [facility] ([place] ([place]) 14:17:00 [facility] Vital Signs Vital Name Observation Time Observation Value Comments Source height 2022 15:40:00 60 [in_i] [facility] weight 2022 15:40:00 213.8 [lb_av] [facility] temperature 2022 15:40:00 97.2 [degF] [facility] bmi 2022 15:40:00 41.75 kg/m2 [facility] oximetry 2022 15:40:00 99 % [facility] respiratory rate 2022 15:40:00 17 /min Comm on [facility] blood pressure 2022 15:40:00 128 mm[Hg] [facility] systolic [facility] blood pressure 2022 15:40:00 72 mm[Hg] [facility] diastolic [facility] weight 2021-09-11 09:00:00 216.0 [lb_av] [facility] bmi 2021-09-11 09:00:00 42.18 kg/m2 [facility] height 2021-09-11 09:00:00 [facility] height 2021-09-11 14:20:00 [facility] weight 2021-09-11 14:20:00 216 [lb_av] [facility] bmi 2021-09-11 14:20:00 42.18 kg/m2 [facility] height 2021-08-31 11:20:00 60 [in_i] [facility] weight 2021-08-31 11:20:00 215 [lb_av] [facility] bmi 2021-08-31 11:20:00 41.98 kg/m2 [facility] height 2021-08-16 13:20:00 [facility] weight 2021-08-16 13:20:00 216.8 [lb_av] [facility] temperature 2021-08-16 13:20:00 97.7 [degF] [facility] bmi 2021-08-16 13:20:00 42.34 kg/m2 [facility] oximetry 2021-08-16 13:20:00 94 % [facility] respiratory rate 2021-08-16 13:20:00 18 /min Comm on Spirit - [facility] blood pressure 2021-08-16 13:20:00 152 mm[Hg] [facility] - systolic [facility] blood pressure 2021-08-16 13:20:00 102 mm[Hg] [facility] - diastolic [facility] Systolic blood 2021-06-13 21:43:00 168 mm[Hg] Univer sity of pressure [facility] Diastolic blood 2021-06-13 21:43:00 88 mm[Hg] Unive rsity of pressure [facility] Heart rate 2021-06-13 21:43:00 88 /min Universi ty of [facility] Respiratory rate 2021-06-13 21:43:00 18 /min Univ ersity of [facility] Oxygen saturation in 2021-06-13 21:43:00 100 /min University of Arterial blood by [facility] Pulse oximetry Branch Body temperature 2021-06-13 18:54:00 35.78 Malorie Univ ersity of [facility] Body height 2021-06-13 18:54:00 152.4 cm [facility] Body weight 2021-06-13 18:54:00 97.523 kg [facility] BMI 2021-06-13 18:54:00 41.99 kg/m2 [facility] Systolic blood 2021-05-31 15:09:00 160 mm[Hg] Univer sity of pressure [facility] Diastolic blood 2021-05-31 15:09:00 116 mm[Hg] Unive rsity of pressure [facility] Heart rate 2021-05-31 15:09:00 92 /min [facility] Body temperature 2021-05-31 15:09:00 36.33 Malorie Univ ersity of [facility] Branch Respiratory rate 2021-05-31 15:09:00 18 /min Univ ersity of [facility] Body weight 2021-05-31 15:09:00 98.158 kg Universi ty [facility] Oxygen saturation in 2021-05-31 15:09:00 100 /min University of Arterial blood by [facility] [place] Pulse oximetry Branch Procedures Procedure Date / Time Performed Performing Clinician Ariane e XR HIPS 2 VW RIGHT 2021-06-13 20:07:51 Rhianna Bauer [facility] Branch CONSENT/REFUSAL FOR 2021-06-13 18:48:35 [facility] Branch TREATMENT Encounters Start End Encounter Admission Attending Care Care Encounter Source Date/Time Date/Time Type Type Clinicians Facility Department ID 2022-07-17 Outpatient Riccardo, STDANILC STLMLC [id number] Common 14:16:02 Minna 05298 [facility] 2022-04-05 Outpatient Jessamine, STLMLC STLMLC [id number] Common 15:36:01 Minna 42638 [facility] 2022-04-03 Outpatient Jessamine, STLMLC STLMLC [id number] Common 14:28:01 Minna 92292 [facility] 2022-03-22 Outpatient Jessamine, STDANILC STLMLC [id number] Common 10:03:01 Minna [facility] 2022-03-05 Outpatient Jessamine, STDANILC STLMLC [id number] Common 09:59:02 Minna [facility] 2021-10-17 Outpatient Jessamine, STLMLC STLMLC [id number] Common 08:38:02 Minna [facility] 2021-09-06 Outpatient Jessamine, STLMLC STLMLC [id number] Common 14:03:01 Minna [facility] 2021-08-16 Outpatient Jessamine, STLMLC STLMLC [id number] Common 12:55:01 Minna [facility] 2022 2022 OFFICE STLMLC STLMLC [id number] Co mmon 00:00:00 00:00:00 VISIT [facility] LEVEL 4 [facility] 2022-02-05 2022-02-05 (TEL) STLMLC STLMLC [id number] Co mmon 00:00:00 00:00:00 [facility] 2021-10-15 2021-10-15 (WEB) STLMLC STLMLC [id number] Co mmon 00:00:00 00:00:00 [facility] 2021-09-29 2021-09-29 (WEB) STLMLC STLMLC [id number] Co mmon 00:00:00 00:00:00 [facility] 2021-09-20 2021-09-20 (TEL) STLMLC STLMLC [id number] Co mmon 00:00:00 00:00:00 [facility] 2021-09-11 2021-09-11 (TEL) STLMLC STLMLC [id number] Co mmon 00:00:00 00:00:00 [facility] 2021-09-11 2021-09-11 SUB ANNUAL STLMLC STLMLC [id number] Common 00:00:00 00:00:00 MCR [facility] VISIT [facility] 2021-09-11 2021-09-11 OFFICE STLMLC STLMLC [id number] Co mmon 00:00:00 00:00:00 VISIT EST Spir it PT LEVEL [address] [facility] 2021-08-31 2021-08-31 OFFICE STLMLC STLMLC [id number] Co mmon 00:00:00 00:00:00 VISIT EST Spir it PT LEVEL [address] [facility] 2021-08-25 2021-08-25 (TEL) STLMLC STLMLC [id number] Co mmon 00:00:00 00:00:00 [facility] 2021-08-16 2021-08-16 OFFICE STLMLC STLMLC [id number] Co mmon 00:00:00 00:00:00 VISIT NEW Spir it PT LEVEL 4 - [facility] 2021-06-13 2021-06-[address] [facility] [id number] Univers 13:56:00 16:54:00 RHIANNA nogueira of [facility] 2021-06-13 2021-06-13 Emergency Juancarlos [facility] [id number] Univers 13:56:00 16:54:00 Rhianna Kong DEMAREST [id number] i [facility] [id number] [facility] [id number] [facility] 084 Branch 2021-06-13 2021-06-13 Orders Doctor SOMMER [id number] Univers 00:00:00 00:00:00 Only Unassigned, HE [id number] ity of [place] [facility] [id number] [facility] [phone] [facility] 009 Branch 2021-05-31 2021-05-31 Emergency X Mellissa WILLS [facility] ERT [id number] Univers 09:11:00 12:05:00 ity of [facility] 2021-05-31 2021-05-31 Emergency Mellissa Wills [facility] [id number] Univers 09:11:00 12:05:00 Shirin ENCINSA [id number] i ty of [place] [id number] [facility] [id number] [place] [id number] Branch Results This patient has no known results.
[2022-09-09 18:40] LABS: Hematocrit 33.3 % (36.0-45.0); Lymphocytes % 35.3 % (15.3-44.8); MCV 85.8 fL (80-100); MPV 7.1 fL (7.6-11.3); RBC Red Blood Cell Count 3.88 M/uL (3.86-4.86)
[2022-09-09 18:49] LABS: Potassium 3.6 mEq/L (3.5-5.1); Troponin High Sensitivity 4.9 pg/mL (<58.9)
--- NOTE | 2022-09-09 19:23 | RAD REPORT ---
EXAM DESCRIPTION: Bettye Single View09/09/2022 7:07 pm CLINICAL HISTORY: Chest pain COMPARISON: 2007 FINDINGS: 8 millimeter nodular opacity overlies right upper lobe. Remainder lungs appear clear. Heart is normal size IMPRESSION: 8 millimeter nodular opacity overlies the right upper lobe. This may represent a pulmona ry nodule or confluence of ribs and vessels. CT chest would be helpful for further evaluation
--- NOTE | 2022-09-09 19:35 | ER ---
Nurse's Notes [facility] Name: Marilu Walters Age: 62 yrs Sex: Female : 1960 Arrival Date: 09/09/2022 Time: 17:53 Bed 20 Private MD: Diagnosis: Chest pain, unspecified Presentation: 09/09 18:01 Chief complaint: Patient states: midsternal chest pain constant since 1130 today. iw Coronavirus screen: At this time, the client does not indicate any symptoms associated with coronavirus-19. Ebola Screen: Patient negative for fever greater than or equal to 101.5 degrees Fahrenheit, and additional compatible Ebola Virus Disease symptoms Patient denies exposure to infectious person. Patient denies travel to an Ebola-affected area in the 21 days before illness onset. No symptoms or risks identified at this time. Initial Sepsis Screen: Does the patient meet any 2 criteria? No. Patient's initial sepsis screen is negative. Does the patient have a suspected source of infection? No. Patient's initial sepsis screen is negative. Risk Assessment: Do you want to hurt yourself or someone else? Patient reports no desire to harm self or others. Onset of symptoms was September 09, 2022. 18:01 Method Of Arrival: Ambulatory iw 18:01 Acuity: ANTONY 2 iw Historical: - Allergies: 18:01 Morphine; iw 18:01 PENICILLINS; iw - PMHx: 18:01 depressive disorder; Hypertensive disorder; Hypercholesterolemia; iw - PSHx: 18:03 back surgery; hysterectomy; R knee meniscus repair; tubal ligation; iw - Immunization history:: Adult Immunizations up to date. - Social history:: Smoking status: Patient/guardian denies using tobacco, Stopped _ months ago 3. Screenin:30 [facility] ED Fall Risk Assessment (Adult) History of falling in the last 3 months, nj1 including since admission No falls in past 3 months (0 pts) Confusion or Disorientation No (0 pts) Intoxicated or Sedated No (0 pts) Impaired Gait No (0 pts) Mobility Assist Device Used No (0 pt) Altered Elimination No (0 pt) Score/Fall Risk Level 0 - 2 = Low Risk Oriented to surroundings, Maintained a safe environment, Hourly rounding (assess needs \T\ fall precautionary measures) done. Abuse screen: Denies threats or abuse. Denies injuries from another. Nutritional screening: No deficits noted. Tuberculosis screening: No symptoms or risk factors identified. Assessment: 18:30 General: Appears in no apparent distress. comfortable, Behavior is calm, cooperative, nj1 appropriate for age. Pain: Complains of pain in chest Pain does not radiate. Pain currently is 4 out of 10 on a pain scale. Pain began Around noon. Neuro: Level of Consciousness is awake, alert, obeys commands, Oriented to person, place, time, situation. 18:30 Cardiovascular: Reports chest pain, Patient's skin is warm and dry. Respiratory: Airway nj1 is patent Respiratory effort is even, unlabored. 19:25 Reassessment: Patient appears in no apparent distress at this time. Patient and/or nj1 family updated on plan of care and expected duration. Pain level reassessed. Patient is alert, oriented x 3, equal unlabored respirations, skin warm/dry/pink. 21:15 Reassessment: Patient appears in no apparent distress at this time. Patient and/or nj1 family updated on plan of care and expected duration. Pain level reassessed. Patient is alert, oriented x 3, equal unlabored respirations, skin warm/dry/pink. Vital Signs: 18:02 BP 172 / 74; Pulse 84; Resp 16; Pulse Ox 97% on R/A; Weight 95.25 kg; Height 5 ft. 0 iw in. ; Pain 4/10; 19:25 BP 146 / 68; Pulse 76; Resp 14; Pulse Ox 99% ; Pain 4/10; nj1 21:13 BP 163 / 81; Pulse 74; Resp 21; Pulse Ox 98% ; Pain 4/10; nj1 18:02 Body Mass Index 41.01 (95.25 kg, 152.4 cm) iw 18:02 Pain Scale: Adult iw 19:25 Pain Scale: Adult nj1 21:13 Pain Scale: Adult nj1 ED Course: 17:55 Patient arrived in ED. ts1 18:01 Triage completed. iw 18:02 Arm band placed on. iw 18:05 Sandra Kennedy FNP-C is PHCP. kb 18:05 Vaibhav Che MD is Attending Physician. kb 18:17 Elidia Winters RN is Primary Nurse. nj1 18:25 Inserted saline lock: 22 gauge in left forearm, using aseptic technique. Blood zm collected. 18:25 Basic Metabolic Panel Sent. zm 18:25 CBC with Diff Sent. zm 18:25 Troponin HS Sent. zm 18:25 Initial lab(s) drawn, by me, sent to lab. zm 18:30 Patient has correct armband on for positive identification. Bed in low position. Call nj1 light in reach. 18:30 Client placed on continuous cardiac and pulse oximetry monitoring. NIBP monitoring nj1 applied. 18:40 Patient maintains SpO2 saturation greater than 95% on room air. nj1 19:08 XRAY Chest (1 view) In Process Unspecified. EDMS 19:33 Darshana Bergman MD is Hospitalizing Provider. kb 21:10 No provider procedures requiring assistance completed. Patient admitted, IV remains in nj1 place. Administered Medications: 19:40 Drug: Aspirin PO Chewable Tablet 243 mg Route: PO; nj1 21:31 Follow up: Response: No adverse reaction nj1 Medication: 21:13 VIS not applicable for this client. nj1 Outcome: 19:33 Decision to Hospitalize by Provider. kb 20:55 Admitted to Tele accompanied by [facility], via wheelchair, room 411, Report called to Mansi cohen RN 20:55 Condition: stable nj1 20:55 Instructed on the need for admit. 21:33 Patient left the ED. [facility] Signatures: Dispatcher [employer] EDMS Sandra Kennedy, SCREENER PERFUMER-Luh SCREENER PERFUMER-Sandy Elizondo, RN Jackie Jones Norma, RN RN nj1 Valentina Pinto, KRYSTA PAS ts1 Corrections: (The following items were deleted from the chart) 21:30 21:13 BP 146 / 68; Pulse 74bpm; Resp 21bpm; Pulse Ox 98%; nj1 nj1
--- NOTE | 2022-09-09 19:35 | EDPHYS ---
Physician Documentation [facility] Name: Marilu Walters Age: 62 yrs Sex: Female : 1960 Arrival Date: 09/09/2022 Time: 17:53 Bed 20 Private MD: ED Physician Vaibhav Che HPI: 09/09 20:33 This 62 yrs old Female presents to ER via Ambulatory with complaints of Chest Pain, kb Shortness Of Breath. 20:33 The patient or guardian reports chest pain that is located primarily in the substernal kb area. Onset: today, at 12:00. The pain does not radiate. Associated signs and symptoms: Pertinent positives: nausea, shortness of breath. The chest pain is described as a heaviness, a pressure. Duration: The patient or guardian reports a single episode. Modifying factors: The symptoms are alleviated by nothing. the symptoms are aggravated by nothing. Severity of pain: At its worst the pain was moderate in the emergency department the pain is unchanged. The patient has not experienced similar symptoms in the past. The patient has not recently seen a physician. Pt reports substernal chest pain that started at noon today. 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 Reports sister of CT so she didn't want to risk it. Reports she had similar pain for a few hours on Saturday, but it resolved after taking aspirin that day.. Historical: - Allergies: 18:01 Morphine; iw 18:01 PENICILLINS; iw - PMHx: 18:01 depressive disorder; Hypertensive disorder; Hypercholesterolemia; iw - PSHx: 18:03 back surgery; hysterectomy; R knee meniscus repair; tubal ligation; iw - Immunization history:: Adult Immunizations up to date. - Social history:: Smoking status: Patient/guardian denies using tobacco, Stopped _ months ago 3. ROS: 20:32 Constitutional: Negative for fever, chills, and weight loss. kb 20:32 Cardiovascular: Positive for chest pain. 20:32 Respiratory: Positive for shortness of breath. 20:32 Abdomen/GI: Positive for nausea. 20:32 All other systems are negative. Exam: 20:32 Constitutional: This is a well developed, well nourished patient who is awake, alert, kb and in no acute distress. Head/Face: Normocephalic, atraumatic. ENT: Moist Mucous membranes Cardiovascular: Regular rate and rhythm with a normal S1 and S2. No gallops, murmurs, or rubs. No pulse deficits. Respiratory: Respirations even and unlabored. No increased work of breathing. Talking in full sentences Abdomen/GI: Soft, non-tender. No distention Skin: Warm, dry with normal turgor. Normal color. MS/ Extremity: Pulses equal, no cyanosis. Neurovascular intact. Full, normal range of motion. Neuro: Awake and alert, GCS 15, oriented to person, place, time, and situation. Moves all extremities. Normal gait. Vital Signs: 18:02 BP 172 / 74; Pulse 84; Resp 16; Pulse Ox 97% on R/A; Weight 95.25 kg; Height 5 ft. 0 iw in. ; Pain 4/10; 19:25 BP 146 / 68; Pulse 76; Resp 14; Pulse Ox 99% ; Pain 4/10; nj1 21:13 BP 163 / 81; Pulse 74; Resp 21; Pulse Ox 98% ; Pain 4/10; nj1 18:02 Body Mass Index 41.01 (95.25 kg, 152.4 cm) iw 18:02 Pain Scale: Adult iw 19:25 Pain Scale: Adult nj1 21:13 Pain Scale: Adult nj1 MDM: 18:06 Patient medically screened. kb 20:30 Data reviewed: vital signs, nurses notes. kb 20:36 Differential diagnosis: abnormal EKG, acute myocardial infarction, coronary artery kb disease chest wall pain. The patient was given aspirin in the Emergency Department. Consideration of Admission/Observation Patient was admitted/placed on observation. Management of patient was discussed with the following: Hospitalist: CHELA Dominguez accepts pt for admission under Dr Bergman. Dr Che recommends admission. Scoring Tools HEART Score: Total Score = 4. Counseling: I had a detailed discussion with the patient and/or guardian regarding: the historical points, exam findings, and any diagnostic results supporting the discharge/admit diagnosis, lab results, radiology results, the need for further work-up and treatment in the hospital. 09/09 18:03 Order name: Basic Metabolic Panel; Complete Time: 20:31 iw 09/09 18:03 Order name: CBC with Diff; Complete Time: 18:45 iw 09/09 18:03 Order name: Troponin HS; Complete Time: 20:31 09/09 20:05 Order name: DD la1 09/09 20:20 Order name: NT PRO-BNP; Complete Time: 20:31 EDMS 09/09 18:03 Order name: XRAY Chest (1 view); Complete Time: 19:32 iw 09/09 18:03 Order name: EKG; Complete Time: 18:04 09/09 18:03 Order name: Cardiac monitoring; Complete Time: 18:25 09/09 18:03 Order name: EKG - Nurse/Tech; Complete Time: 18:25 09/09 18:03 Order name: IV Saline Lock; Complete Time: 18:25 09/09 18:03 Order name: Labs collected and sent; Complete Time: 18:25 09/09 18:03 Order name: O2 Per Protocol; Complete Time: 18:25 09/09 18:03 Order name: O2 Sat Monitoring; Complete Time: 18:25 iw Administered Medications: 19:40 Drug: Aspirin PO Chewable Tablet 243 mg Route: PO; nj1 21:31 Follow up: Response: No adverse reaction nj1 Disposition Summary: 09/09/22 19:33 Hospitalization Ordered Hospitalization Status: Observation kb Provider: Darshana Bergman Location: Telemetry/MedSurg (observation) kb Condition: Stable kb Problem: new kb Symptoms: are unchanged kb Bed/Room Type: Standard Room Assignment: 411(09/09/22 20:26) cg Diagnosis - Chest pain, unspecified kb Forms: - Medication Reconciliation Form kb - SBAR form kb Addendum: 09/11/2022 09:01 Co-signature as Attending Physician, Vaibhav Che MD I reviewed the patient's care r n provided by the Advanced Practice Provider and agree with the diagnosis and treatment plan. Signatures: Dispatcher [employer] Sandra Boogei, JUAN-Luh KELLYP-Sandy Elizondo, RN Vaibhav Douglas MD MD rn Garcia, Cindy, RN RN cg Jaco, Norma, RN RN nj1 Corrections: (The following items were deleted from the chart) 09/09 20:19 20:05 PROBNP+C.LAB.BRZ ordered. EDSD EDSD 20:26 19:33 kb cg
[2022-09-09] MEDS ORDERED: ASPIRIN 81 MG CHEWABLE TABLET ONE (19:45)
--- NOTE | 2022-09-09 20:26 | P.HP ---
Certification for Inpatient Patient admitted to: Observation With expected LOS: <2 Midnights Patient will require the following post-hospital care: None Practitioner: I am a practitioner with admitting privileges, knowledge of patient current condition, hospital course, and medical plan of care. Services: Services provided to patient in accordance with Admission requirements found in Title 42 Section 412.3 of the Code of Federal Regulations Patient History Date of Service: 09/09/22 History of Present Illness: 62-year-old female with history of hypertension, hyperlipidemia, depression/anxiety and vertigo presents emergency department chief complaint of chest pain. She reports that she was driving the car on the way to [facility] when she developed a pressure-like chest pain radiating to her back associated with nausea, shortness of breath. At that time she checked her blood pressure and it was markedly elevated over 200 systolic. She was evaluated in the emergency de partment initial high-sensitivity troponin is 4.9 EKG without STEMI criteria present, D-dimer added on. She denies any previous cardiac work-up has never had stress test or heart catheterization. We will admit under observation for ACS rule out. - Past Medical/Surgical History -: Hypertension -: Hyperlipidemia -: Depression/anxiety -: Vertigo -: Back surgery -: hysterectomy -: Right knee surgery Psychosocial/ Personal History: Patient lives at home with family - Family History Family History: Reviewed- Non-Contributory - Social History Smoking Status: Former smoker Alcohol use: No CD- Drugs: No Caffeine use: Yes Place of Residence: Home Review of Systems 10-point ROS is otherwise unremarkable Respiratory: Shortness of Breath Cardiovascular: Chest Pain Gastrointestinal: Nausea Physical Examination - Physical Exam General: Alert, In no apparent distress, Oriented x3, Obese HEENT: Atraumatic, PERRLA, Mucous membr. moist/pink, EOMI, Sclerae nonicteric Neck: Supple, 2+ carotid pulse no bruit, No LAD, Without JVD or thyroid abnormality Respiratory: Clear to auscultation bilaterally, Normal air movement Cardiovascular: Regular rate/rhythm, Normal S1 S2 Gastrointestinal: Normal bowel sounds, No tenderness Musculoskeletal: No tenderness Integumentary: No rashes Neurological: Normal speech, Normal strength at 5/5 x4 extr, Normal tone, Normal affect - Studies Laboratory Data (last 24 hrs) 09/09/22 18:22: WBC 5.60, Hgb 11.4 L, Hct 33.3 L, Plt Count 251 09/09/22 18:22: Sodium 138, Potassium 3.6, BUN 12, Creatinine 0.90, Glucose 161 H Assessment and Plan - Plan Assessment: Chest pain rule out ACS Hypertension Hyperlipidemia Depression/anxiety Plan: Chest pain rule out ACS Trend troponins, monitor on telemetry, continue aspirin, statin. Cardiology consult in place. Hypertension Hyperlipidemia Depression/anxiety Continue home medications. DVT PPX: Lovenox Code status: Full Discharge Plan: Home Plan to discharge in: 24 Hours - Advance Directives Does patient have a Living Will: No Does patient have a Durable POA for Healthcare: No - Code Status/Comfort Care Code Status Assessed: Yes (FULL CODE) Critical Care: No Time Spent Managing Pts Care (In Minutes): 55
[2022-09-09 21:44] VITALS: O2SAT 98
[2022-09-09] MEDS ORDERED: MORPHINE 2 MG/ML SYR IV PRN (21:52)
[2022-09-09] MEDS ORDERED: ONDANSETRON 4 MG/2 ML VIAL IV PRN (21:52)
[2022-09-09] MEDS ORDERED: ATORVASTATIN 40 MG TAB PO SCH (21:52)
[2022-09-10 06:08] VITALS: BMI 41.0
[2022-09-10 06:23] LABS: Absolute Lymphocytes (CBC) 1.6 K/uL (0.7-4.9); Hematocrit 33.5 % (36.0-45.0); Lymphocytes % 32.8 % (15.3-44.8); MCV 86.1 fL (80-100); MPV 7.1 fL (7.6-11.3); RBC Red Blood Cell Count 3.88 M/uL (3.86-4.86)
[2022-09-10 06:48] LABS: Potassium 3.9 mEq/L (3.5-5.1); Thyroid Stimulating Hormone 1.73 uIU/mL (0.358-3.740); Troponin High Sensitivity 5.5 pg/mL (<58.9)
--- NOTE | 2022-09-10 07:10 | P.PN ---
Date of Service: 09/10/22 Subjective: ROS: 10 point ROS as noted above, otherwise negative Physical Exam: GEN: Alert, oriented, NAD HEENT: Normal conjunctiva, sclera anicteric CV: Regular rate and rhythm, no edema Pulm: Nonlabored respirations on room air ABD: Soft, nontender, nondistended MSK: No joint tenderness Integumentary: No rashes Neuro: Normal speech, normal affect vitals reviewed Problem List: VTE: Code: Dispo:
[2022-09-10] MEDS ORDERED: REGADENOSON 0.4 MG/5 ML SYR IV ONE (07:50)
[2022-09-10] MEDS ORDERED: ASPIRIN EC 81 MG TAB PO SCH (09:00)
[2022-09-10] MEDS ORDERED: ENOXAPARIN 40 MG/0.4 ML SQ SCH (09:00)
--- NOTE | 2022-09-10 09:09 | RAD REPORT ---
EXAM DESCRIPTION: NM - Rest Stress Cardiac Imaging - 09/10/2022 9:02 am CLINICAL HISTORY: CP Chest pain. COMPARISON: No comparisons TECHNIQUE: The patient was administered approximately 10mCi of Tc 99m Sestamibi prior to resting SPE CT imaging of the heart. The patient was then administered approximately 30 mCi of Tc 99m Sestamibi f ollowing exercise or pharmacologic stress. Multiplanar SPECT images were reviewed. FINDINGS: No stress induced ischemic defect is seen to suggest stress induced ischemia. There is a a pical defect noted with rest. However, this defect does not persist with stress which would indicate that it does not represent stress-induced ischemia. The end diastolic volume is 102 ml, the end systolic volume is 37 ml, and the ejection fraction is 64 %. IMPRESSION: No stress induced ischemia.
[2022-09-10 10:08] LABS: Specific Gravity > 1.030 (1.005-1.030); Urine Bacteria None Seen /HPF (<20); Urine Bilirubin NEGATIVE (Negative); Urine Blood Negative (Negative); Urine Clarity Clear (Clear); Urine Color Light-Yellow (Yellow); Urine Glucose NEGATIVE (Negative); Urine Mucus Slight /HPF (None Seen); Urine Protein NEGATIVE (Negative); Urine RBC <5 /HPF (None Seen); Urine Urobilinogen Normal (Normal)
--- NOTE | 2022-09-10 11:53 | TREADPHA ---
DX: CHEST PAIN Date of Study: 09/10/2022 Ht: 5' 0 " Wt: 210 lb 0 oz Consulting Physician: VINOD MEDICATIONS: ASPIRIN, LIPITOR, LOVENOX, MORPHINE, ZOFRAN HISTORY: 62 YEAR OLD FEMALE WITH COMPLAINTS OF HYPERTENSION, HYPERLIPIDEMIA, SMOKER GREATER THAN THIRTY YEARS ONE PACK PER DAY. DENIES PREVIOUS HEART SURGERIES OR DRUG USE. PHYSICIAL EXAMINATION: RESTING B.P.: 134/57 RESTING H.R.: 76 RESTING EKG: NORMAL PROTOCOL: PHARMACOLOGIC EXERCISE TIME: 3:30 B.P. AT PEAK STRESS: 120/71 IMPRESSION: LEXISCAN INJECTED. CARDIOLITE GIVEN PER PROTOCOL. SEE NUCLEAR MEDICINE REPORT. NO SUPRAVENTRICULAR TACHYCARDIA, VENTRICULAR TACHYCARDIA, PREMATURE VENTRICULAR COMPLEXES OR PREMATURE ATRIAL COMPLEXES NOTED. DENIES CHEST PAIN OR SHORTNESS OF BREATH.
--- NOTE | 2022-09-10 12:03 | EKG ---
Test Date: 2022-09-09 Test Time: 18:13:57 Paper Slitter: LUDIVINA MEASUREMENT RESULTS: Intervals: Rate: 78 NC: 146 QRSD: 88 QT: 384 QTc: 437 [place]: P: 7 NC: 146 QRS: 40 T: 70 INTERPRETIVE STATEMENTS: Normal sinus rhythm Normal ECG Compared to ECG 11/22/2006 08:10:41 No significant changes Electronically Signed On 09-10-22 12:00:30 CDT by Link Manzano
[2022-09-10 12:08] VITALS: BP 168/89; TEMP 96.8
--- NOTE | 2022-09-10 13:50 | RAD REPORT ---
EXAM DESCRIPTION: Chest For Pe Angio 09/10/2022 2:33 AM CDT CLINICAL HISTORY: 62 years, Female, Chest pain, shortness of breath, Elevated DD COMPARISON: None TECHNIQUE: Multiple transaxial tomograms of the chest were obtained from the lung apices through the lung bases utilizing 2 mm slice thickness at 2 mm interval reconstruction after the administration o f large bolus of IV contrast for complete opacification of the pulmonary arteries. Subsequent 3-D maximum intensity projection images were generated in the coronal and sagittal plane f or review. This exam was performed according to our departmental dose-optimization protocol, which includes auto mated exposure control, adjustment of the mA and/or kV according to patient size and/or use of iterat jeannette reconstruction technique. FINDINGS: The lungs parenchyma demonstrate clear. No evidence for pneumothorax. No masses, nodules a nd/or consolidations are identified. The trachea mainstem bronchus demonstrate to be normal. There is no significant pericardial or pleura l effusions. The thoracic aorta demonstrate intimal calcification. There is a inferior aspect mid aortic arch dive rticulum findings could be related to previous trauma/or diverticulum on [place] are of consideration . The heart is normal in size. There are coronary artery calcifications. No evidence for right ventri cular strain. There is no significant mediastinal and/or hilar lymphadenopathy. The axillary regions demonstrate to be clear. Pulmonary arteries demonstrate to be normal, no intraluminal defect are seen that would suggest pulmo nary embolus. The bone windows demonstrate no significant skeletal lesions. The visualized portions of the upper abdomen demonstrate unremarkable. IMPRESSION: No CT evidence for pulmonary embolism. Coronary artery calcifications. Inferior aspect mid aortic arch diverticulum findings could be related to previous trauma/or divertic ulum on [place]. Electronically signed by: Jorje Vaughn MD 09/10/2022 2:38 AM CDT Due to temporary technical issues with the PACS/Fluency reporting system, reports are being signed by the in house radiologist without review as a courtesy to ensure prompt reporting. The interpreting r adiologist is fully responsible for the content of the report.
--- NOTE | 2022-09-10 14:57 | P.DS ---
Admission Date: 09/09/22 Discharge Date: 09/10/22 Disposition: ROUTINE DISCHARGE Discharge Condition: GOOD Consultations: Cardiology - Dr. Manzano Brief History of Present Illness: 62yo F, PMH: hypertension, hyperlipidemia, depression/anxiety and vertigo Patient presents emergency department chief complaint of chest pain. She reports that she was driving the car on the way to [facility] when she developed a pressure-like chest pain radiating to her back associated with nausea, shortness of breath. At that time she checked her blood pressure and it was markedly elevated over 200 systolic. She was evaluated in the emergency department initial high-sensitivity troponin is 4.9 EKG without STEMI criteria present, D- dimer added on. She denies any previous cardiac work-up has never had stress test or heart catheterization. Hospital Course: Problem List: Chest pain Hypertension Hyperlipidemia Depression/anxiety Patient presented with chest pain. Troponins were negative x3. Cardiology was consulted. A stress test was performed which showed no stress induced ischemia. There was no further inpatient testing / intervention needed at this time. Chest x-ray and CTA chest were negative for acute process, no pneumonia, no mass. It did note appearance of a mild mid-aortic arch diverticulum, which is unlikely to be the cause of these symptoms. On day of discharge patients chest pain improved. This is possibly costochondritis. She did have point tenderness in that area. New / change in prescriptions none. Continue home medications as previously prescribed. Follow up: PCP 3-5 days Cardiology within 1-2 weeks Physical Exam: GEN: Alert, oriented, NAD HEENT: Normal conjunctiva, sclera anicteric CV: Regular rate and rhythm, no edema Pulm: Nonlabored respirations on room air ABD: Soft, nontender, nondistended MSK: No joint tenderness Integumentary: No rashes Neuro: Normal speech, normal affect Vital Signs/Physical Exam: Temp Pulse Resp BP Pulse Ox 96.8 F 70 16 168/89 H 97 09/10/22 12:00 09/10/22 12:00 09/10/22 12:00 09/10/22 12:00 09/10/22 12:00 Laboratory Data at Discharge: WBC 4.90 thou/uL (4.3-10.9) 09/10/22 05:17 Hgb 11.5 g/dL (12.0-15.0) L 09/10/22 05:17 Hct 33.5 % (36.0-45.0) L 09/10/22 05:17 Plt Count 247 thou/uL (152-406) 09/10/22 05:17 Sodium 139 mEq/L (136-145) 09/10/22 05:17 Potassium 3.9 mEq/L (3.5-5.1) 09/10/22 05:17 BUN 9 mg/dL (7-18) 09/10/22 05:17 Creatinine 0.83 mg/dL (0.55-1.02) 09/10/22 05:17 Glucose 126 mg/dL (74-106) H 09/10/22 05:17 Home Medications: Cetirizine HCl 10 mg PO DAILY 09/10/22 PARoxetine HCL [Paroxetine HCl] 20 mg PO DAILY 09/10/22 Rosuvastatin Calcium [Crestor] 40 mg PO BEDTIME 09/10/22 hydroCHLOROthiazide [Hydrochlorothiazide*] 12.5 mg PO DAILY 09/10/22 Physician Discharge Instructions: Patient presented with chest pain. Troponins were negative x3. Cardiology was consulted. A stress test was performed which showed no stress induced ischemia. There was no further inpatient testing / intervention needed at this time. Chest x-ray and CTA chest were negative for acute process, no pneumonia, no mass. It did note appearance of a mild mid-aortic arch diverticulum, which is unlikely to be the cause of these symptoms. On day of discharge patients chest pain improved. This is possibly costochondritis. She did have point tenderness in that area. New / change in prescriptions none. Continue home medications as previously prescribed. Follow up: PCP 3-5 days Cardiology within 1-2 weeks Followup: Minna Gu NP [Primary Care Provider] - Time spent managing pt's care (in minutes): 45
== END 2022-09-10 15:55 | disposition home or self-care (01) ==
LOC: ER 17:53 → ERHOLD 20:13 → 4TH 20:30
PROVIDERS: ADMIT Hospitalist; ATTEND Hospitalist
DX: R07.9 Chest pain, unspecified (principal); I10 Essential (primary) hypertension; E78.5 Hyperlipidemia, unspecified; F41.9 Anxiety disorder, unspecified; F32.A Depression, unspecified; R42 Dizziness and giddiness; Z87.891 Personal history of nicotine dependence
CPT/HCPCS: 93005; 93017; 93306; 85025 ×2; 81001; 80048 ×2; 36415; 85379; 84443; 84484 ×3; 84439; 83880; 71275; 71045; 78452; 99285; Q9967; J2785; J1650; A9500; G0378

== ENCOUNTER 2022-12-12 06:08 | Day surgery (SDC) | payer OTHER ==
[2022-12-11 15:53] LABS: Absolute Lymphocytes (CBC) 2.1 K/uL (0.7-4.9); Lymphocytes % 27.7 % (15.3-44.8); MCV 85.4 fL (80-100); MPV 7.3 fL (7.6-11.3); Platelets 267 thou/uL (152-406); RBC Red Blood Cell Count 4.33 M/uL (3.86-4.86)
[2022-12-11 16:01] LABS: Potassium 3.6 mEq/L (3.5-5.1)
[2022-12-12] MEDS ORDERED: Ringers Lactate 1,000 ML IV ONE (06:38)
[2022-12-12] MEDS ORDERED: LIDOCAINE 2% MPF 5 ML VIAL ONE (06:55)
[2022-12-12] MEDS ORDERED: propofoL 200 MG/20 ML VIAL IV ONE ×2 (06:55→07:38)
[2022-12-12] MEDS ORDERED: ONDANSETRON 4 MG/2 ML VIAL ONE ×2 (06:57→08:30)
[2022-12-12] MEDS ORDERED: FENTANYL CITR 100 MCG/2 ML ONE ×2 (07:22→07:40)
[2022-12-12 07:59] VITALS: O2SAT 97
--- NOTE | 2022-12-12 08:05 | OP ---
Date of Procedure: 12/12/2022 Surgeon: Nate Scruggs MD Preoperative Diagnosis: Left carpal tunnel syndrome. Postoperative Diagnosis: Left carpal tunnel syndrome. Procedure: Left open carpal tunnel release. Estimated Blood Loss: Less than 3 cc. Complications: There were no complications. Specimen: No pathology specimen sent. Indications For Operation: Ms. Walters is a 62-year-old female, who had previously done a right c arpal tunnel with good result, came to see in my office with results of her left side, which demonstr ated significant carpal tunnel syndrome and risks, benefits, and alternatives of different methods of treating this were discussed with the patient. She states she understands things presented and opts for open carpal tunnel release. All her questions were invited and answered. Description Of Procedure: The patient was taken to the operating room and placed in supine position. General anesthesia was easily obtained by staff. Following this, a well-padded tourniquet was plac ed on the superior left arm. The left upper extremity was then prepped and draped in the usual steri le fashion procedure. The arm was then elevated, but not exsanguinated. Tourniquet was raised. A s tandard incision was made, which parallels the thenar crease with a slight ulnar deviation at the mos t distal wrist crease. This was taken down carefully through skin only. Meticulous hemostasis being maintained using bipolar electrocautery. This leads down to the palmar fascia, which was then divid ed. Any obstruction of the transverse carpal ligament were then gently swept away and a small alexa w as made in the transverse carpal ligament, which demonstrates underlying nerve and carpal tunnel stru ctures. This was then extended in a proximal to distal direction until there were no constricting ba nds. It was then extended in a distal to proximal direction until there were no constricting bands. At no time were any sharp instruments placed outside the direct operative field. Following this, th e nerve was examined and found to be in continuity. The skin was then closed using interrupted nylon suture. She was placed in a well-padded sterile dressing, awakened, and taken to recovery room in g ood condition. There were no complications. SE/MODL Voice ID: [id number] Report ID: [id number]
[2022-12-12] MEDS: HYDROMORPHONE HCL 1 MG/ML INJ ONE ×2 (08:15→08:20)
[2022-12-12] MEDS ORDERED: HYDROCODONE/APAP 7.5/325 MG TAB ONE (08:48)
[2022-12-12 09:17] VITALS: BP 102/58; TEMP 97.1
== END 2022-12-12 09:35 | disposition home or self-care (01) ==
LOC: OR 06:08
PROVIDERS: ATTEND Orthopaedic Surgery
PROC: 01N50ZZ Release Median Nerve, Open Approach (ICD-10-PCS; principal; 2022-12-12 07:00)
DX: G56.02 Carpal tunnel syndrome, left upper limb (principal); I10 Essential (primary) hypertension; E78.00 Pure hypercholesterolemia, unspecified; F32.A Depression, unspecified; E66.9 Obesity, unspecified; Z88.0 Allergy status to penicillin; Z88.2 Allergy status to sulfonamides; Z88.6 Allergy status to analgesic agent; Z68.42 Body mass index [BMI] 45.0-49.9, adult
CPT/HCPCS: 85025; 80048; 36415; 64721; J2704 ×2; J2001; J3010 ×2; J1170; J2405 ×2; J7120

== ENCOUNTER 2022-12-21 12:18 | Emergency (ER) | payer OTHER ==
--- OUTSIDE RECORDS SUMMARY | 2022-12-21 12:24 | XMS REPORT | Continuity of Care Document ---
:1960 Author Organization [facility] t Address [address] [place] [address] [place] [id number] Care Team Providers Name Role Phone PCP, PATIENT DOES NOT HAVE A Primary Care Physician UnavailMinna White Attending Clinician Unavailable Thalia Jaimes MA Attending Clinician Unavailable DEEJAY ALY Attending Clinician Unavailable Deejay Aly MD Attending Clinician [phone] RHIANNA BAUER Attending Clinician Unavailable Rhianna Michael Attending Clinician Doctor Unassigned, [place] Attending Clinician Unavailable Mellissa WILLS Attending Clinician Unavailable Mellissa Floyd Attending Clinician HRIANNA BAUER Admitting Clinician Unavailable Payers Payer Name Policy Type Policy Number Effective Date Expiration Date [place] [address] [id number] [facility] - [facility] MEDICAID OF [id number] 2021 [place] 00:00:00 Problems Condition Condition Condition Status Onset Resolution Last Treating Co mments Source Name Details Category Date Date Treatment Clinician Date [id number] Degenerati Problem Co mmon ve joint Spirit disease of - CHI low back [facility] [id number] Numbness Problem Comm on of left Spirit hand - CHI [facility] [id number] Pain, Problem Commo n [id number] joint, Spirit hand, left - [facility] [id number] Smoker Problem Common [facility] [id number] Hx of iron Problem Co mmon deficiency [facility] anemia [facility] History of History of Problem C ommon asthma asthma [facility] Seasonal Chronic Problem Common allergic seasonal [facility] rhinitis allergic - [facility] rhinitis [facility] [id number] Primary Problem Common hypertensi [facility] on [facility] [id number] Hyperlipid Problem Co mmon emia, Spirit mixed [facility] [id number] Reactive Problem Commo n depression [facility] No known No known Disease Unive rs active active ity of problems problems [facility] Allergies, Adverse Reactions, Alerts Allergy Allergy Status Severity Reaction(s) Onset Inactive Treating Comm ents Source Name Type Date Date Clinician NAPROXEN DRUG Active Swelling Univer s INGREDI 3-15 ity of 00:00: [place] 00 [facility] Naproxen Propensi Active Swelling Univ ers ty to 315 ity of adverse 00:00: [place] reaction 00 [facility] Penicill Propensi Active Anaphylaxis U nivers ins ty to 05-31 ity of adverse 00:00: [place] reaction 00 [facility] PENICILL Drug Active Anaphylaxis Uni vers INS Class 05-31 ity of 00:00: [place] 00 [facility] MORPHINE DRUG Active N/V Univers INGREDI 05-31 ity of 00:00: [place] 00 [facility] Morphine Propensi Active Nausea Univer s ty to and/or 05-31 ity of adverse Vomiting 00:00: [place] reaction 00 [facility] Morphine Drug Active Nausea And Other [facility] Allergy Vomiting 05-31 reaction( Luke s 00:00: s): Medical 00 stomach Center upset Penicill Drug Active Anaphylaxis, CH I St ins Allergy Shortness Of 05-31 Bill es Breath 00:00: Medical 00 [place] NO KNOWN Drug Active Univers ALLERGIE Class ity of S [facility] [id number] Drug Active shortness of Co mmon 85 allergy breath [facility] 77175 Drug Active Unknown Common allergy [facility] Non-ster Non-ster Active Unknown Commo n oidal oidal Spirit anti-inf anti-inf - [facility] lammator lammator St y agent y agent [facility] Social History Social Habit Start Date Stop Date Quantity Comments Source History of Current Smoker Common Spi rit - Tobacco Use [facility] Exposure to Not sure University SARS-CoV-2 [place] [facility] (event) Branch Tobacco use and 2022-12-06 2022-12-[address] [facility] exposure 00:00:00 00:00:00 non-user Medical Center Sex Assigned At [birth year] [facility] 00:00:00 00:00:00 Medical Center Smoking Status Start Date Stop Date Source Unknown if [facility] Never smoked tobacco [facility] Current Smoker 2022-10-23 00:00:00 Common Spiri t - [facility] Medications Ordered Filled Start Stop Current Ordering Indication Dosage Frequency Signature Comments Components Source Medication Medication Date Date Medication? Clinician (SIG) Name Name hydroCHLORO Yes [address] thiazide 12-07 in the [facility] (MICROZIDE) 09:26: morning Med ical 12.5 mg 49 Orally Center capsule Once a day for 90 days PARoxetine Yes TAKE 1 CHI S t (PAXIL) 20 9- TABLET BY Luke s MG tablet 09:26: MOUTH ONCE Me dical 49 DAILY IN Center THE MORNING for 90 aspirin-caf Yes Take by [facility] feine 9- mouth. [facility] (Kate Back 09:26: Medica l and Body) 49 Center 500-32.5 mg Tab ibuprofen Yes 200mg Take 1 CHI S t (ADVIL,MOTR - tablet [facility] IN) 200 MG 09:26: (200 mg Medi [place] tablet 49 total) by Center mouth every 6 (six) hours as needed for Pain. carvediloL Yes 3.125mg Q.5D Take [address] (COREG) -06 tablet [facility] 3.125 MG 00:00: (3.125 mg Medi [place] tablet 00 total) by Center mouth 2 (two) times daily. ondansetron Yes Take by [facility] (ZOFRAN) 8 9-06 mouth. [facility] MG tablet 00:00: Medical 00 Center cetirizine Yes 10mg QD Take 1 CHI S t (ZyrTEC) 10 7-18 tablet (10 Lela kes MG tablet 00:00: mg total) Med ical 00 by mouth Center daily. rosuvastati Yes SMARTSI [facility] n (CRESTOR) 6-05 Tablet(s) Bill es 40 MG 00:00: By Mouth Medical tablet 00 Every Center Evening meclizine Yes [address] (ANTIVERT) 3-06 as needed Luke s 25 mg 00:00: Orally Medical tablet 00 every 8 Center hrs for 30 days Ondansetron Ondansetron No 1{table BID Ondansetro HCl 8 MG HCl 8 MG 3-06 t_as_ne n HCl 8 MG 00:00: eded} 00 Meclizine Meclizine No 1{table TID Meclizine HCl 25 MG HCl 25 MG 3-06 t_as_ne HCl 25 MG 00:00: eded} 00 albuterol Yes [address] HFA 1-05 needed [facility] (VENTOLIN 00:00: Inhalation Me dical HFA) 90 00 every 4 Center mcg/actuati hrs for 30 on inhaler days Albuterol Albuterol No 1{puff_ 6xD Albuterol Sulfate HFA Sulfate HFA 1-05 as_need Sulfate 108 (90 108 (90 00:00: ed} HFA 108 Base) Base) 00 (90 Base) MCG/ACT MCG/ACT MCG/ACT Albuterol Albuterol No 1{puff_ 6xD Albuterol Sulfate HFA Sulfate HFA 1-05 as_need Sulfate 108 (90 108 (90 00:00: ed} HFA 108 Base) Base) 00 (90 Base) MCG/ACT MCG/ACT MCG/ACT Varenicline Varenicline 2022- No BID Vareniclin Tartrate 1 Tartrate 1 1-05 06-04 e Tartrate MG MG 00:00: 00:00 1 MG 00 :00 Varenicline Varenicline 3- No Vareniclin Tartrate Tartrate 04-05- e Tartrate 0.5 MG X 11 0.5 [...] 6-13 t} HCl 25 MG 00:00: 00 Rosuvastati Rosuvastati 2021-0 No 1{table Rosuvastat n Calcium n Calcium 6-02 t} in Calcium 40 MG 40 MG 00:00: 40 MG 00 Cetirizine Cetirizine 2021-0 No 1{table QD Cetirizine HCl 10 MG HCl 10 MG 6-02 t} HCl 10 MG 00:00: 00 Cetirizine Cetirizine 2021-0 No [...] MG 00:00: 40 MG 00 Cetirizine Cetirizine 2022-0 No 1{table QD Cetirizine HCl 10 MG HCl 10 MG 6-02 t} HCl 10 MG 00:00: 00 Lisinopril Lisinopril 2022-0 No 1{table QD Lisinopril 20 MG 20 MG 5-18 t} 20 MG 00:00: 00 Lisinopril Lisinopril 2-0 No 1{table QD Lisinopril 20 MG 20 MG 5-18 t} 20 MG 00:00: 00 Lisinopril Lisinopril 2-0 No 1{table QD Lisinopril 20 MG 20 MG 5-18 t} 20 MG 00:00: 00 Lisinopril Lisinopril 2-0 No 1{table QD Lisinopril 20 MG 20 MG 5-18 t} 20 MG 00:00: 00 Lisinopril Lisinopril 2022-0 No 1{table QD Lisinopril 20 MG 20 MG 5-18 t} 20 MG 00:00: 00 Lisinopril Lisinopril 2-0 No 1{table QD Lisinopril 20 MG 20 MG 5-18 t} 20 MG 00:00: 00 Lisinopril Lisinopril 2-0 No 1{table QD Lisinopril 20 MG 20 MG 5-18 t} 20 MG 00:00: 00 Lisinopril Lisinopril 2-0 No 1{table QD Lisinopril 20 MG 20 MG 5-18 t} 20 MG 00:00: 00 Lisinopril Lisinopril 2022-0 No 1{table QD Lisinopril 20 MG 20 MG 5-18 t} 20 MG 00:00: 00 Lisinopril Lisinopril 2022-0 No 1{table QD Lisinopril 20 MG 20 MG 5-18 t} 20 MG 00:00: 00 Lisinopril Lisinopril 2-0 No 1{table QD Lisinopril 20 MG 20 MG 5-18 t} 20 MG 00:00: 00 naproxen 2022-0 2022- No [id number] 500mg Take 1 Univers (NAPROSYN) 3-15 03-15 9102 tablet by ity of 500 mg 00:00: 00:00 mouth 2 [place] tablet 00 :00 (two) Medical times Branch daily with meals. Tylenol 325 Tylenol 325 No 2{table 6xD Tylenol MG MG ts_as_n 325 MG eeded} Ibuprofen Ibuprofen No TID Ibuprofen 200 MG 200 MG 200 MG Kate Back Kate Back No Kaet Back & Body Pain & Body Pain [...] 5 am Oxalate MG MG 5 MG Kate Back Kate Back No Kate Back & Body Pain & Body Pain & Body Ex St Ex St Pain Ex St 500-32.5 MG 500-32.5 MG 500-32.5 MG hydroCHLORO hydroCHLORO No 1{capsu QD hydroCHLOR thiazide thiazide le_in_t Othiazide 12.5 MG 12.5 MG he_morn 12.5 MG ing} Rosuvastati Rosuvastati No Rosuvastat n Calcium n Calcium in Calcium 40 MG 40 MG 40 MG Tylenol 325 Tylenol 325 No 2{table 6xD Tylenol MG MG ts_as_n 325 MG eeded} PARoxetine PARoxetine No PARoxetine HCl 20 MG HCl 20 MG HCl 20 MG Ibuprofen Ibuprofen No TID Ibuprofen 200 [...] St 500-32.5 MG 500-32.5 MG 500-32.5 MG Vital Signs Vital Name Observation Time Observation Value Comments Source HEIGHT 2022-12-06 12:10:00 154.9 cm WEIGHT 2022-12-06 12:10:00 107.14 kg HEIGHT 2022-12-06 12:10:00 154.9 cm WEIGHT 2022-12-06 12:10:00 107.14 kg height 2022 15:40:00 60 [in_i] [facility] weight 2022 15:40:00 213.8 [lb_av] [facility] temperature 2022 15:40:00 97.2 [degF] [facility] bmi 2022 15:40:00 41.75 kg/m2 [facility] oximetry 2022 15:40:00 99 % [facility] respiratory rate 2022 15:40:00 17 /min Comm on [facility] blood pressure 2022 15:40:00 128 mm[Hg] Common [facility] - systolic [facility] blood pressure 2022 15:40:00 72 mm[Hg] [facility] diastolic [facility] weight 2021-09-11 09:00:00 216.0 [lb_av] [facility] bmi 2021-09-11 09:00:00 42.18 kg/m2 [facility] height 2021-09-11 09:00:00 Common S pirit [facility] height 2021-09-11 14:20:00 Common S pirit [facility] weight 2021-09-11 14:20:00 216 [lb_av] [facility] bmi 2021-09-11 14:20:00 42.18 kg/m2 Common S pirit [facility] height 2021-08-31 11:20:00 60 [in_i] Common S pirit [facility] weight 2021-08-31 11:20:00 215 [lb_av] Common S pirit [facility] bmi 2021-08-31 11:20:00 41.98 kg/m2 [facility] S pirit [facility] height 2021-08-16 13:20:00 [facility] S [facility] weight 2021-08-16 13:20:00 216.8 [lb_av] [facility] temperature 2021-08-16 13:20:00 97.7 [degF] [facility] bmi 2021-08-16 13:20:00 42.34 kg/m2 [facility] S [facility] oximetry 2021-08-16 13:20:00 94 % [facility] respiratory rate 2021-08-16 13:20:00 18 /min Comm on [facility] blood pressure 2021-08-16 13:20:00 152 mm[Hg] Common [facility] - systolic [facility] blood pressure 2021-08-16 13:20:00 102 mm[Hg] Common [facility] - diastolic [facility] Systolic blood 2021-06-13 21:43:00 168 mm[Hg] Univer sity of pressure [facility] Diastolic blood 2021-06-13 21:43:00 88 mm[Hg] Unive rsity of pressure [facility] Heart rate 2021-06-13 21:43:00 88 /min [facility] Respiratory rate 2021-06-13 21:43:00 18 /min Univ [facility] Oxygen saturation in 2021-06-13 21:43:00 100 /min University of Arterial blood by [facility] Pulse oximetry Branch Body temperature 2021-06-13 18:54:00 35.78 Malorie [facility] Body height 2021-06-13 18:54:00 152.4 cm Universi ty of [facility] Body weight 2021-06-13 18:54:00 97.523 kg Universi ty [facility] BMI 2021-06-13 18:54:00 41.99 kg/m2 Universi ty [facility] Systolic blood 2021-05-31 15:09:00 160 mm[Hg] Univer sity of [facility] Diastolic blood 2021-05-31 15:09:00 116 mm[Hg] Unive rsity [facility] Heart rate 2021-05-31 15:09:00 92 /min Universi ty [facility] Body temperature 2021-05-31 15:09:00 36.33 Malorie [facility] Respiratory rate 2021-05-31 15:09:00 18 /min [facility] Body weight 2021-05-31 15:09:00 98.158 kg Universi ty [facility] Oxygen saturation in 2021-05-31 15:09:00 100 /min University of Arterial blood by [facility] Pulse oximetry Branch Systolic blood 2022-12-06 12:10:00 136 mm[Hg] [facility] Diastolic blood 2022-12-06 12:10:00 82 mm[Hg] [facility] Heart rate 2022-12-06 12:10:00 75 /min [facility] Body temperature 2022-12-06 12:10:00 36.39 Malorie [facility] Body height 2022-12-06 12:10:00 154.9 cm [facility] Body weight 2022-12-06 12:10:00 107.14 kg [facility] BMI 2022-12-06 12:10:00 44.63 kg/m2 [facility] Procedures Procedure Date / Time Performing Clinician Source Performed HM COLONOSCOPY 2022-12-06 00:00:00 Provider, Historical [facility] HM MAMMOGRAPHY 2022-12-05 00:00:00 Provider, Historical [facility] XR HIPS 2 VW RIGHT 2021-06-13 20:07:51 Rhianna Bauer [facility] Branch CONSENT/REFUSAL FOR 2021-06-13 18:48:35 Doctor Unassigned, No Un [facility] DIAGNOSIS AND TREATMENT Name Medical Branch Plan of Care Planned Activity Planned Date Details Comments Source Future Scheduled 2032-12-06 Screening for malignant [facility] Test 00:00:00 neoplasm of colon Medical Ce nter (procedure) [code = 930636687] Future Scheduled 2032-12-06 Screening for malignant [facility] Test 00:00:00 neoplasm of colon Medical Ce nter (procedure) [code = 382193977] Future Scheduled 2024-12-05 Screening for malignant [facility] Test 00:00:00 neoplasm of breast Medical C enter (procedure) [code = 948285717] Future Scheduled 2023-12-[address] [facility] Test 00:00:00 Counseling and Screening Med ical Center (12+) [code = Tobacco Cessation Counseling and Screening (12+)] Future Scheduled 2022-11-30 Influenza Vaccine (#1) [facility] Test 00:00:00 [code = Influenza Vaccine [facility] (#1)] Future Scheduled 2022-05-30 Medicare IPPE (WELCOME TO [facility] Test 00:00:00 MEDICARE) [code = Medical Ce nter Medicare IPPE (WELCOME TO MEDICARE)] Future Scheduled 2022-04-[address] [facility] Test 00:00:00 (12+) [code = DEPRESSION Med ical Center SCREENING (12+)] Future Scheduled 2021-05-16 COVID-19 VACCINE (3 - [facility] Test 00:00:00 Booster for [facility] Center series) [code = COVID-19 VACCINE (3 - Booster for Harpreet series)] Future Scheduled 2011 SHINGLES VACCINES ([address] [facility] Test 00:00:00 2) [code = SHINGLES Medical Center VACCINES (1 of 2)] Future Scheduled 2006 Lipid panel (procedure) [facility] Test 00:00:00 [code = 72209996] Medical Ce nter Future Scheduled 1982 Screening for malignant [facility] Test 00:00:00 neoplasm of cervix Medical C enter (procedure) [code = 409998982] Future Scheduled 1980 DTAP/TDAP/TD VACCINES ([address] [facility] Test 00:00:00 - Tdap) [code = Medical Cent er DTAP/TDAP/TD VACCINES (1 - Tdap)] Future Scheduled 1979 HEPATITIS C SCREENING [facility] Test 00:00:00 [code = HEPATITIS C Medical Center SCREENING] Future Scheduled [address] Human [address] [facility] Test 00:00:00 virus screening Medical Cent er (procedure) [code = 772022792] Future Scheduled 1961 CT Colonography (combo) [facility] Test 00:00:00 [code = CT Colonography [facility] (combo)] Future Scheduled 1961 Screening for malignant [facility] Test 00:00:00 neoplasm of colon Medical Ce nter (procedure) [code = 143987343] Future Scheduled 1961 Screening for malignant [facility] Test 00:00:00 neoplasm of colon Medical Ce nter (procedure) [code = 745695930] Future Scheduled 1960 Sigmoidoscopy [code = [facility] Test 00:00:00 Sigmoidoscopy] Medical Cente r Encounters Start End Encounter Admission Attending Care Care Encounter Source Date/Time Date/Time Type Type Clinicians Facility Department ID 2022-12-17 Outpatient LOLY Gu [facility] [id number] Common 08:22:00 Minna [address] [facility] 2022-12-07 Outpatient LOLY Gu [facility] [id number] Common 11:42:00 Minna 56180 [facility] 2022-12-05 Outpatient LOLY Gu [facility] [id number] Common 08:56:00 Minna 40174 [facility] 2022-11-05 Outpatient LOLY Gu [facility] [id number] Common 15:10:00 Minna 79826 [facility] 2022-10-23 Outpatient Sevier, STLMLC STLMLC [id number] Common 15:39:00 Minna 42207 [facility] 2022-10-22 Outpatient Sevier, STLMLC STLMLC [id number] Common 14:36:00 Minna 83864 [facility] 2022-09-13 Outpatient Sevier, STLMLC STLMLC [id number] Common 17:23:00 Minna 98659 [facility] 2022-07-17 Outpatient Sevier, STLMLC STLMLC [id number] Common 14:16:02 Minna 46017 [facility] 2022-04-05 Outpatient Sevier, STLMLC STLMLC [id number] Common 15:36:01 Minna 40997 [facility] 2022-04-03 Outpatient Sevier, STLMLC STLMLC [id number] Common 14:28:01 Minna 24835 [facility] 2022-03-22 Outpatient Sevier, STLMLC STLMLC [id number] Common 10:03:01 Minna [facility] 2022-03-05 Outpatient Sevier, STLMLC STLMLC [id number] Common 09:59:02 Minna [facility] 2021-10-17 Outpatient Sevier, STLMLC STLMLC [id number] Common 08:38:02 Minna [facility] 2021-09-06 Outpatient Sevier, STLMLC STLMLC [id number] Common 14:03:01 Minna [facility] 2021-08-16 Outpatient Se[place], STLMLC STLMLC [id number] Common 12:55:01 Minna [facility] 2022-12-13 2022-12-[address] [facility] [id number] 00:00[facility]00 00:00:00 [facility] 2022-12-06 2022-12-06 Outpatient KARRIE ALY [facility] [id number] 11:58:03 13:02:19 [facility] 2022-12-06 2022-12-06 Office Radhaner, STC [id number] 11:45:00 13:02:19 Visit [facility] 2022 2022 OFFICE STLMLC STLMLC [id number] Co mmon 00:00:00 00:00:00 VISIT [facility] PT - CHI LEVEL 4 [facility] 2022-02-05 2022-02-05 (TEL) STLMLC STLMLC [id number] Co mmon 00:00:00 00:00:00 [facility] 2021-10-15 2021-10-15 (WEB) STLMLC STLMLC [id number] Co mmon 00:00:00 00:00:00 [facility] 2021-09-29 2021-09-29 (WEB) STLMLC STLMLC [id number] Co mmon 00:00:00 00:00:00 [facility] 2021-09-20 2021-09-20 (TEL) STLMLC STLMLC [id number] Co mmon 00:00:00 00:00:00 [facility] 2021-09-11 2021-09-11 (TEL) STLMLC STLMLC [id number] Co mmon 00:00:00 00:00:00 [facility] 2021-09-11 2021-09-11 SUB ANNUAL STLMLC STLMLC [id number] Common 00:00:00 00:00:00 MCR Spirit WELLNESS - CHI VISIT [facility] 2021-09-11 2021-09-11 OFFICE STLMLC STLMLC [id number] Co mmon 00:00:00 00:00:00 VISIT EST Spir it PT LEVEL 3 - CHI [facility] 2021-08-31 2021-08-31 OFFICE STLMLC STLMLC [id number] Co mmon 00:00:00 00:00:00 VISIT EST Spir it PT LEVEL 3 - CHI [facility] 2021-08-25 2021-08-25 (TEL) STLMLC STLMLC [id number] Co mmon 00:00:00 00:00:00 [facility] 2021-08-24 2021-08-24 (TEL) [facility] [id number] Co mmon 00:00:00 00:00:00 [facility] 2021-08-16 2021-08-16 OFFICE STLC STLC [id number] Co mmon 00:00:00 00:00:00 VISIT NEW Spir it PT LEVEL 4 - [facility] 2021-06-13 2021-06-13 Emergency X [facility] ERT [id number] Univers 13:56:00 16:54:00 RHIANNA ity [facility] 2021-06-13 2021-06-13 Emergency [facility] [id number] Univers 13:56:00 16:54:00 Rhianna S HUANG [id number] i ty of [place] 4.2.7.2.686 [facility] [id number] [address] 2021-06-13 2021-06-13 Orders Doctor SOMMER [id number] Univers 00:00:00 00:00:00 Only Unassigned, HE 350.1.13.10 ity of [place] [facility] 4.2.7.2.686 Js as [id number] [place] [address] Branch 2021-05-31 2021-05-31 Emergency X Mellissa WILLS [facility] ERT [id number] Univers 09:11:00 12:05:00 ity of [facility] 2021-05-31 2021-05-31 Emergency Mellissa Wills [facility] [id number] Univers 09:11:00 12:05:00 Shirin ENCINAS [id number] i ty of [place] 4.2.7.2.686 [facility] [id number] [address] Results Test Description Test Time Test Comments Results Result Comments Source COLONOSCOPY 2022-12-06 00:00:00 Test Item Value Reference Range Interpretation Comme nts Colonoscopy (test code = 97) [id number] 00:00:00 Test Item Value Reference Range Interpretation Comments HM Mammogram (test code = 99) results pending Radiology Study observation (narrative) (test code = 11535-7) [facility]
--- NOTE | 2022-12-21 13:26 | RAD REPORT ---
EXAM DESCRIPTION: Bettye Ames And Vito (2 Views)12/21/2022 1:16 pm CLINICAL HISTORY: Cough COMPARISON: August 2022 FINDINGS: The lungs appear clear of acute infiltrate. The heart is normal size IMPRESSION: No acute abnormalities displayed
--- NOTE | 2022-12-21 13:39 | EDPHYS ---
Physician Documentation [facility] Name: Marilu Walters Age: 62 yrs Sex: Female : 1960 Arrival Date: 12/21/2022 Time: 12:18 Bed IW2 Private MD: ED Physician Vaibhav Che HPI: 12/21 12:56 This 62 yrs old Female presents to ER via Ambulatory with complaints of Cough, Sore rn Throat, Congestion. 12:56 The patient or guardian reports cough, flu symptoms. Onset: The symptoms/episode rn began/occurred 2 day(s) ago. Severity of symptoms: At their worst the symptoms were mild, in the emergency department the symptoms are unchanged. Modifying factors: The symptoms are alleviated by nothing, the symptoms are aggravated by nothing. Associated signs and symptoms: Pertinent positives: fever, sore throat, Pertinent negatives: chest pain. The patient has not experienced similar symptoms in the past. The patient has not recently seen a physician. Historical: - Allergies: 12:40 Morphine; hb 12:40 PENICILLINS; hb - PMHx: 12:40 depressive disorder; Hypercholesterolemia; Hypertensive disorder; hb - PSHx: 12:40 back surgery; hysterectomy; R knee meniscus repair; tubal ligation; hb - Immunization history:: Adult Immunizations up to date, Client reports receiving the 2nd dose of the Covid vaccine. - Social history:: Smoking status: Patient/guardian denies using tobacco, the patient reports quitting approximately 1 years ago. - Family history:: not pertinent. - Hospitalizations: : No recent hospitalization is reported. 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 Head/Face: Normocephalic, atraumatic. ENT: Mild pharyngeal erythema, no stridor Cardiovascular: Regular rate and rhythm. No pulse deficits. Respiratory: No increased work of breathing, no retractions or nasal flaring. Skin: Warm, dry MS/ Extremity: Pulses equal, no cyanosis Neuro: Awake and alert, GCS 15 Vital Signs: 12:39 BP 146 / 99; Pulse 79; Resp 18; Temp 97.2(TE); Pulse Ox 96% on R/A; Weight 107.5 kg; hb Height 5 ft. 0 in. ; Pain 8/10; 12:39 Body Mass Index 46.29 (107.50 kg, 152.4 cm) hb 12:39 Pain Scale: Adult hb MDM: 12:25 Patient medically screened. rn 13:36 Differential Diagnosis: Bronchitis Influenza Upper Respiratory Infection Pharyngitis rn Viral Syndrome Pneumonia. Data reviewed: vital signs, nurses notes, lab test result(s), radiologic studies, plain films, and as a result, I will discharge patient. Counseling: I had a detailed discussion with the patient and/or guardian regarding the historical points, exam findings, and any diagnostic results supporting the discharge/admit diagnosis, lab results, radiology results, the need for outpatient follow up, to return to the emergency department if symptoms worsen or persist or if there are any questions or concerns that arise at home. Special discussion: I discussed with the patient/guardian in detail that at this point there is no indication for admission to the hospital. It is understood, however, that if the symptoms persist or worsen the patient needs to return immediately for re-evaluation. 13:36 ED course: I have personally reviewed all of the results and imaging deemed necessary rn to safely discharge this patient at this time. All results given to and printed out for patient. I personally went over all the results with the patient and answered all questions. Patient will follow-up with PCP and or specialist as discussed. Return precautions given and understood.. 12/21 12:28 Order name: SARS-COV-2 RT PCR; Complete Time: 13:36 rn 12/21 12:28 Order name: Flu; Complete Time: 13:25 rn 12/21 12:28 Order name: Strep rn 12/21 13:10 Order name: Throat Culture EDMS 12/21 12:44 Order name: XRAY Chest Pa And Lat (2 Views); Complete Time: 13:27 rn Administered Medications: No medications were administered Disposition Summary: 12/21/22 13:38 Discharge Ordered Notes: Location: Home rn Problem: new rn Symptoms: have improved rn Condition: Stable rn Diagnosis - Pain in throat rn - Acute upper respiratory infection, unspecified rn Followup: rn - With: Private Physician - When: As needed - Reason: Recheck today's complaints, Re-evaluation by your physician Discharge Instructions: - Discharge Summary Sheet rn - Upper Respiratory Infection, Adult rn Forms: - Medication Reconciliation Form rn - Thank You Letter rn - 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 Day 2, 3, 4 , 5 take one (1) tablet once daily.; 6 tablet; Refills: 0, Product Selection Permitted Signatures: Dispatcher [employer] EDMS Vaibhav Che MD MD rn Baxter, Heather, RN RN hb Corrections: (The following items were deleted from the chart) 12:42 12:39 Social history: Smoking status: Patient denies any tobacco usage or history of. hbhb
--- NOTE | 2022-12-21 13:39 | ER ---
Nurse's Notes [facility] Name: Marilu Walters Age: 62 yrs Sex: Female : 1960 Arrival Date: 12/21/2022 Time: 12:18 Bed IW2 Private MD: Diagnosis: Pain in throat;Acute upper respiratory infection, unspecified Presentation: 12/21 12:39 Chief complaint: Painful cough, congestion, sore throat, and nausea x 2 days. hb Coronavirus screen: Client presents with at least one sign or symptom that may indicate coronavirus-19. Provider contacted for isolation considerations. Ebola Screen: No symptoms or risks identified at this time. Initial Sepsis Screen: Does the patient meet any 2 criteria? No. Patient's initial sepsis screen is negative. Does the patient have a suspected source of infection? No. Patient's initial sepsis screen is negative. Risk Assessment: Do you want to hurt yourself or someone else? Patient reports no desire to harm self or others. Onset of symptoms was December 20, 2022. 12:39 Method Of Arrival: Ambulatory hb 12:39 Acuity: ANTONY 4 hb Triage Assessment: 12:41 General: Appears in no apparent distress. Behavior is calm, cooperative. Pain: Pain hb currently is 8 out of 10 on a pain scale. EENT: Reports sore throat, cough,. Neuro: Level of Consciousness is awake, alert, obeys commands, Oriented to person, place, time, situation. Cardiovascular: Patient's skin is warm and dry. Respiratory: Reports cough that is productive, Respiratory effort is even, unlabored, Respiratory pattern is regular, symmetrical. Historical: - Allergies: 12:40 Morphine; hb 12:40 PENICILLINS; hb - PMHx: 12:40 depressive disorder; Hypercholesterolemia; Hypertensive disorder; hb - PSHx: 12:40 back surgery; hysterectomy; R knee meniscus repair; tubal ligation; hb - Immunization history:: Adult Immunizations up to date, Client reports receiving the 2nd dose of the Covid vaccine. - Social history:: Smoking status: Patient/guardian denies using tobacco, the patient reports quitting approximately 1 years ago. - Family history:: not pertinent. - Hospitalizations: : No recent hospitalization is reported. Screenin:41 [facility] ED Fall Risk Assessment (Adult) Score/Fall Risk Level 0 - 2 = Low Risk hb Oriented to surroundings, Maintained a safe environment. Abuse screen: Denies threats or abuse. Denies injuries from another. Nutritional screening: No deficits noted. Tuberculosis screening: No symptoms or risk factors identified. Assessment: 12:41 General: See triage assessment. hb 13:45 Reassessment: Patient appears in no apparent distress at this time. Patient and/or hb family updated on plan of care and expected duration. Pain level reassessed. Patient is alert, oriented x 3, equal unlabored respirations, skin warm/dry/pink. Vital Signs: 12:39 BP 146 / 99; Pulse 79; Resp 18; Temp 97.2(TE); Pulse Ox 96% on R/A; Weight 107.5 kg; hb Height 5 ft. 0 in. ; Pain 8/10; 12:39 Body Mass Index 46.29 (107.50 kg, 152.4 cm) hb 12:39 Pain Scale: Adult hb ED Course: 12:21 Patient arrived in ED. rg4 12:25 Vaibhav Che MD is Attending Physician. rn 12:40 Triage completed. hb 12:40 Arm band placed on. hb 12:41 Patient has correct armband on for positive identification. Provided Education on: . hb 12:42 No provider procedures requiring assistance completed. Patient did not have IV access hb during this emergency room visit. 12:46 Strep Sent. hb 12:46 Flu Sent. hb 12:46 SARS-COV-2 RT PCR Sent. hb 13:16 XRAY Chest Pa And Lat (2 Views) In Process Unspecified. EDMS 13:52 Angeles Simental, RN is Primary Nurse. hb Administered Medications: No medications were administered Medication: 12:41 VIS not applicable for this client. hb Outcome: 13:38 Discharge ordered by . rn 13:50 Discharged to home ambulatory, hb 13:50 Condition: stable 13:50 Discharge instructions given to patient, Instructed on discharge instructions, follow up and referral plans. medication usage, Demonstrated understanding of instructions, follow-up care, medications, Prescriptions given X 1, 13:53 Patient left the ED. hb Signatures: Dispatcher [employer] EDMS Vaibhav Che MD MD rn Baxter, Heather, RN RN Felicia Stout rg4 Corrections: (The following items were deleted from the chart) 12:42 12:39 Social history: Smoking status: Patient denies any tobacco usage or history of. hbhb
[2022-12-21 14:06] VITALS: BP 146/99; TEMP 97.2; O2SAT 96
== END 2022-12-21 13:53 | disposition home or self-care (01) ==
LOC: ER 12:18
DX: J06.9 Acute upper respiratory infection, unspecified (principal); R05.9 Cough, unspecified; Z20.822 Contact with and (suspected) exposure to COVID-19; Z88.0 Allergy status to penicillin; Z88.5 Allergy status to narcotic agent
CPT/HCPCS: 71046; 87070; 87081; 87635; 87804; 99283

== ENCOUNTER → 2023-03-26 | Emergency (ER) | payer OTHER ==
[~2023-03-26] MED LIST: FENTANYL CITR 100 MCG/2 ML ONE; KETOROLAC 30 MG/ML INJ ONE; NA CHLORIDE 0.9% 1,000 ML ONE; ONDANSETRON 4 MG/2 ML VIAL ONE
[2023-03-26 17:43] LABS: Hematocrit 36.7 % (36.0-45.0); Lymphocytes % 24.9 % (15.3-44.8); MCV 86.2 fL (80-100); MPV 8.1 fL (7.6-11.3); Platelets 212 thou/uL (152-406); RBC Red Blood Cell Count 4.26 M/uL (3.86-4.86)
[2023-03-26 17:44] LABS: Absolute Lymphocytes (CBC) 1.6 K/uL (0.7-4.9)
[2023-03-26 17:55] LABS: Albumin 3.4 g/dL (3.4-5.0); Bilirubin Total 0.5 mg/dL (0.2-1.0); Protein, Total 7.1 g/dL (6.4-8.2)
[2023-03-26 18:01] LABS: Specific Gravity 1.008 (1.005-1.030); Urine Bacteria <20 /HPF (<20); Urine Bilirubin NEGATIVE (Negative); Urine Blood Negative (Negative); Urine Clarity Turbid (Clear); Urine Color Light-Yellow (Yellow); Urine Glucose NEGATIVE (Negative); Urine Protein NEGATIVE (Negative); Urine RBC <5 /HPF (None Seen); Urine Urobilinogen Normal (Normal)
--- NOTE | 2023-03-26 18:45 | RAD REPORT ---
EXAM DESCRIPTION: CTAbdomen Pelvis W Contrast - 03/26/2023 6:31 pm CLINICAL HISTORY: ABD PAIN COMPARISON: CT ABD PELVIS W CONTRAST dated 10/27/2012; CT ABD PELVIS W CONTRAST dated 06/14/2007 TECHNIQUE: CT of the abdomen and pelvis was performed. All CT scans are performed using dose optimization technique as appropriate and may include automated exposure control or mA/KV adjustment according to patient size. FINDINGS: Lower chest: Circumferential thickened distal esophagus. Liver: No acute abnormality or suspicious lesions. Biliary: Cholecystectomy. Extrahepatic duct dilatation is likely related to the postcholecystectomy s parekh. Stomach: Evie-en-Y gastric bypass. Duodenum: No significant focal abnormality. Pancreas: No significant abnormality. Spleen: No significant abnormality. Adrenal: No suspicious lesions. Kidney/ureter: No hydronephrosis. No renal calculi. Retroperitoneum: No retroperitoneal adenopathy. Vascular: No aneurysm. Atherosclerosis Bowel: Inflammatory changes at gastrojejunal anastomosis with prominent regional mesenteric lymph nod es.. Peritoneum: No ascites or free air. Tiny fat containing umbilical hernia. Bladder: Grossly unremarkable. Reproductive: No adnexal masses. Bones: No acute fracture. Other: n/a IMPRESSION: Inflammatory changes in the jejunum just beyond the gastrojejunostomy could be secondary to an enteritis or marginal ulcer. No bowel obstruction.
--- NOTE | 2023-03-26 19:01 | EDPHYS ---
Physician Documentation [facility] Name: Marilu Walters Age: 63 yrs Sex: Female : 1960 Arrival Date: 03/26/2023 Time: 16:13 Bed 18 Private MD: Minna Gu ED Physician Ben Hidalgo HPI: 03/26 17:11 This 63 yrs old Female presents to ER via Ambulatory with complaints of ec2 Dizziness, Abdominal Pain. 17:11 Patient arrives today due to concern for left-sided abdominal pain as well as ec2 dizziness. Patient reports history of chronic dizziness, states that she has been treated for vertigo in the past, states that the symptoms were similar. Patient reports that the symptoms been ongoing for at least 4 days. Patient reports no head strike, no head pain, no nausea or vomiting. Patient reports that she does have some left-sided abdominal pain that is intermittent without specific alleviating or exacerbating factors. Denies any urinary complaints.. Historical: - Allergies: 16:18 Morphine; ll1 16:18 PENICILLINS; ll1 - PMHx: 16:18 depressive disorder; Hypercholesterolemia; Hypertensive disorder; ll1 - PSHx: 16:18 back surgery; hysterectomy; R knee meniscus repair; tubal ligation; ll1 - Immunization history:: Adult Immunizations up to date. - Social history:: Smoking status: Patient/guardian denies using tobacco, the patient reports quitting approximately 1 years ago. ROS: 17:11 Constitutional: as per hpi ec2 Exam: 17:11 Constitutional: GEN: NAD Head: atraumatic Eyes: EOMI Ears: External ears are ec2 normal. CV: regular rate LUNGS: no respiratory distress ABD: non-distended, soft, nonguarding, not rigid, left-sided TTP SKIN: no evidence of rashes MSK: no evidence of trauma NEURO: moves all extremities equally Vital Signs: 16:44 BP 131 / 53; Pulse 78; Resp 18; Temp 98.2(O); Pulse Ox 97% on R/A; Weight 95.25 kg; me1 Height 5 ft. 0 in. ; Pain 2/10; 17:45 BP 116 / 64; Pulse 70 LA; Resp 18; Pulse Ox 96% on R/A; me1 18:15 BP 118 / 59; Pulse 68; Resp 17; Pulse Ox 97% on R/A; me1 18:45 BP 127 / 76; Pulse 64; Resp 17; Pulse Ox 98% on R/A; me1 16:44 Body Mass Index 41.01 (95.25 kg, 152.4 cm) me1 16:44 Pain Scale: Adult me1 MDM: 16:44 Patient medically screened. ec2 17:11 Data reviewed: vital signs. ED course: Patient arrives today due to concern for ec2 abdominal pain as well as chronic dizziness. Examination remarkable for well-appearing nontoxic individual is otherwise in no acute distress with a reassuring abdominal examination. Will obtain lab work, CT imaging of the abdomen pelvis and reassess the patient. Currently considering processes such as diverticulitis, pyelonephritis, UTI, ureteral stone.. 18:13 ED course: CBC is reassuring, reassuring metabolic profile, urine is noninfectious ec2 appearing. Lipase within normal ranges. Pending CT imaging. . 18:56 ED course: CT imaging shows possible enteritis versus ulcer. Will start the patient on ec2 PPI and have her follow-up with her primary care doctor. In regards to her dizziness, this is chronic in nature without acute component. Will follow-up with PCP as well. . 03/26 17:10 Order name: CBC with Diff; Complete Time: 18:12 ec2 03/26 17:10 Order name: CMP; Complete Time: 18:12 ec2 03/26 17:10 Order name: Lipase; Complete Time: 18:12 ec2 03/26 17:12 Order name: UAM; Complete Time: 18:12 ec2 03/26 17:10 Order name: CT Abd/Pelvis - IV Contrast Only; Complete Time: 18:55 ec2 03/26 17:10 Order name: IV Saline Lock; Complete Time: 17:32 ec2 03/26 17:10 Order name: Labs collected and sent; Complete Time: 17:32 ec2 Administered Medications: 17:45 Drug: NS 0.9% IV 1000 ml IV at 1 bolus Per protocol; 1000 mL bolus Route: IV; Rate: 1 me1 bolus; Site: right forearm; 19:16 Follow up: IV Status: Completed infusion me1 17:45 Drug: TORadol - Ketorolac IVP 15 mg IVP once Route: IVP; Site: right forearm; me1 17:55 Follow up: Response: No adverse reaction; Pain is decreased me1 17:45 Drug: Ondansetron IVP 4 mg IVP once; over 2 minutes Route: IVP; Site: right forearm; me1 17:55 Follow up: Response: No adverse reaction; Pain is decreased me1 17:45 Drug: fentaNYL (PF) IVP 25 mcg IVP once Route: IVP; Site: right forearm; me1 19:07 Follow up: Response: No adverse reaction; Pain is decreased me1 Disposition Summary: 03/26/23 19:00 Discharge Ordered Notes: Location: Home ec2 Condition: Stable ec2 Diagnosis - Upper abdominal pain, unspecified ec2 - Peptic ulcer, site unspecified, unspecified as acute or chronic, without hemorrhage ec2 or perforation Followup: ec2 - With: Private Physician - When: - Reason: Recheck today's complaints Discharge Instructions: - Discharge Summary Sheet ec2 - Peptic Ulcer ec2 Forms: - Medication Reconciliation Form ec2 - Thank You Letter ec2 - Antibiotic Education ec2 - Prescription Opioid Use ec2 - Patient Portal Instructions ec2 - Leadership Thank You Letter ec2 Prescriptions: - Protonix 40 mg Oral Tablet - take 1 tablet ORAL route once daily; 30 tablet; Refills: 0, Product Selection ec2 Permitted Signatures: Dispatcher [employer] Bety Martinez RN RN 1 Yuliana Bolivar RN RN me1 Ben Hidalgo MD MD ec2
--- NOTE | 2023-03-26 19:01 | ER ---
Nurse's Notes [facility] Name: Marilu Walters Age: 63 yrs Sex: Female : 1960 Arrival Date: 03/26/2023 Time: 16:13 Bed 18 Private MD: Minna Gu Diagnosis: Upper abdominal pain, unspecified;Peptic ulcer, site unspecified, unspecified as acute or chronic, without hemorrhage or perforation Presentation: 03/26 16:44 Chief complaint: Patient states: woke up Saturday morning and felt dizzy- has been taking me1 her prn meclizine with no relief. Woke up Saturday morning with RUQ pain 10/10 stabbing that is intermittent. Had a gastric bypass 6 weeks ago and is concerned that the abd pain could be related. Coronavirus screen: Vaccine status: Patient reports receiving the 2nd dose of the covid vaccine. Ebola Screen: No symptoms or risks identified at this time. Initial Sepsis Screen: Does the patient meet any 2 criteria? No. Patient's initial sepsis screen is negative. Does the patient have a suspected source of infection? No. Patient's initial sepsis screen is negative. Risk Assessment: Do you want to hurt yourself or someone else? Patient reports no desire to harm self or others. Onset of symptoms was March 25, 2023 at 09:00. 16:44 Method Of Arrival: [place] [facility] [place] Acuity: ANTONY 3 me1 Triage Assessment: 16:44 General: Appears uncomfortable, obese, well groomed, well developed, well nourished, dc1 Behavior is calm, cooperative, appropriate for age, Reports dizziness that started Saturday morning. LUQ abd pain that started Saturday morning. Pain: Complains of pain in left upper quadrant. Pain: Pain does not radiate. Pain currently is 2 out of 10 on a pain scale. at worst was 10 out of 10 on a pain scale. Quality of pain is described as stabbing, Pain began suddenly, Is intermittent. Neuro: Level of Consciousness is awake, alert, obeys commands, Oriented to person, place, time, situation, Appropriate for age. Cardiovascular: Capillary refill < 3 seconds Patient's skin is warm and dry. Respiratory: Airway is patent Respiratory effort is even, unlabored, Respiratory pattern is regular, symmetrical. GI: Abdomen is round Reports upper abdominal pain, since Saturday morning. Pain is stabbing, intermittent and 10/10 at worst. 16:44 Neuro: Reports dizziness, since Patrick morning that does not improve when she takes her me1 meclizine. Historical: - Allergies: 16:18 Morphine; ll1 16:18 PENICILLINS; ll1 - PMHx: 16:18 depressive disorder; Hypercholesterolemia; Hypertensive disorder; ll1 - PSHx: 16:18 back surgery; hysterectomy; R knee meniscus repair; tubal ligation; ll1 - Immunization history:: Adult Immunizations up to date. - Social history:: Smoking status: Patient/guardian denies using tobacco, the patient reports quitting approximately 1 years ago. Screenin:52 [facility] ED Fall Risk Assessment (Adult) History of falling in the last 3 months, dc1 including since admission No falls in past 3 months (0 pts) Confusion or Disorientation No (0 pts) Intoxicated or Sedated No (0 pts) Impaired Gait No (0 pts) Mobility Assist Device Used No (0 pt) Altered Elimination No (0 pt) Score/Fall Risk Level 0 - 2 = Low Risk Maintained a safe environment, Provided non-skid footwear, Hourly rounding (assess needs \T\ fall precautionary measures) done. Abuse screen: Denies threats or abuse. Nutritional screening: No deficits noted. Tuberculosis screening: No symptoms or risk factors identified. Assessment: 16:52 General: See triage assessment. . dc1 19:08 GI: Bowel sounds present X 4 quads. Abd is soft Abd is non tender. dc1 Vital Signs: 16:44 BP 131 / 53; Pulse 78; Resp 18; Temp 98.2(O); Pulse Ox 97% on R/A; Weight 95.25 kg; me1 Height 5 ft. 0 in. ; Pain 2/10; 17:45 BP 116 / 64; Pulse 70 LA; Resp 18; Pulse Ox 96% on R/A; me1 18:15 BP 118 / 59; Pulse 68; Resp 17; Pulse Ox 97% on R/A; me1 18:45 BP 127 / 76; Pulse 64; Resp 17; Pulse Ox 98% on R/A; dc1 16:44 Body Mass Index 41.01 (95.25 kg, 152.4 cm) [facility] [place] 16:44 Pain Scale: Adult me1 ED Course: 16:15 Patient arrived in ED. mr 16:15 Minna Gu is Private Physician. mr 16:18 Ben Hidalgo MD is Attending Physician. ec2 16:18 Arm band placed on. ll1 16:32 Yuliana Bolivar, RN is Primary Nurse. me1 16:32 Patient placed in an exam room, on a stretcher. ll1 16:47 Triage completed. me1 16:52 Allergy band placed. Bed in low position. Call light in reach. Side rails up X 1. me1 Provided Education on: POC. Verbalized understanding. . 16:52 No provider procedures requiring assistance completed. me1 17:33 Inserted saline lock: 22 gauge in right forearm, using aseptic technique. Blood ds4 collected. 17:45 UAM Sent. me1 18:33 CT Abd/Pelvis - IV Contrast Only In Process Unspecified. EDMS 19:15 IV discontinued, intact, bleeding controlled, No redness/swelling at site. Pressure me1 dressing applied. Administered Medications: 17:45 Drug: NS 0.9% IV 1000 ml IV at 1 bolus Per protocol; 1000 mL bolus Route: IV; Rate: 1 me1 bolus; Site: right forearm; 19:16 Follow up: IV Status: Completed infusion me1 17:45 Drug: TORadol - Ketorolac IVP 15 mg IVP once Route: IVP; Site: right forearm; me1 17:55 Follow up: Response: No adverse reaction; Pain is decreased me1 17:45 Drug: Ondansetron IVP 4 mg IVP once; over 2 minutes Route: IVP; Site: right forearm; me1 17:55 Follow up: Response: No adverse reaction; Pain is decreased me1 17:45 Drug: fentaNYL (PF) IVP 25 mcg IVP once Route: IVP; Site: right forearm; me1 19:07 Follow up: Response: No adverse reaction; Pain is decreased me1 Medication: 16:52 VIS not applicable for this client. me1 Outcome: 19:00 Discharge ordered by . ec2 19:11 Discharged to home ambulatory, me1 19:11 Condition: stable 19:11 Discharge instructions given to patient, Instructed on discharge instructions, follow up and referral plans. medication usage, Demonstrated understanding of instructions, follow-up care, medications, Prescriptions given X 1, 19:16 Patient left the ED. me1 Signatures: Dispatcher [employer] EDSharon Hennessy, Reg Reg mr Tobi Draperovan ds4 Bety Coello RN RN 1 Yuliana Bolivar RN RN me1 Ben Hidalgo MD MD ec2
[2023-03-26 22:13] VITALS: BP 127/76; TEMP 98.2; O2SAT 98
== END ==
LOC: ER 16:13
DX: K27.9 Peptic ulcer, site unspecified, unspecified as acute or chronic, without hemorrhage or perforation (principal); R42 Dizziness and giddiness; Z88.0 Allergy status to penicillin; Z88.5 Allergy status to narcotic agent
CPT/HCPCS: 96361; 85025; 81001; 36415; 83690; 80053; 74177; 96375; 96374; 99284; Q9967; J3010; J2405; J7030

== ENCOUNTER 2024-06-22 10:07 | Emergency (ER) | payer OTHER ==
[2024-06-22] MEDS ORDERED: ONDANSETRON 4 MG/2 ML VIAL ONE (10:37)
[2024-06-22] MEDS ORDERED: LIDOCAINE 1% 20 ML MDV ONE (10:37)
[2024-06-22] MEDS ORDERED: CLINDAMYCIN 900MG/D5W 900 MG/50 ML IVPB IV ONE (10:38)
[2024-06-22] MEDS ORDERED: BACI/NEOMYCIN/POLY OINT 15GM TOP ONE (10:38)
[2024-06-22] MEDS ORDERED: FENTANYL CITR 100 MCG/2 ML ONE (10:38)
[2024-06-22] MEDS ORDERED: NA CHLORIDE 0.9% 1,000 ML ONE (10:39)
[2024-06-22] MEDS ORDERED: LIDOCAINE 2% W/EPI 1:200,000 MPF 20 ML VIAL IM ONE (10:44)
[2024-06-22 11:03] LABS: Absolute Basophils 0.1 K/uL (0-0.5); Absolute Eosinophils 0.1 K/uL (0-0.5); Absolute Lymphocytes (CBC) 1.6 K/uL (0.7-4.9); Absolute Monocytes 0.6 K/uL (0.1-1.3); Basophils % 0.6 % (0-1.3); Eosinophils % 1.2 % (0-4.4); Hematocrit 37.6 % (36.0-45.0); Hemoglobin 12.6 g/dL (12.0-15.0); Lymphocytes % 16.7 % (15.3-44.8); MCH 30.5 pg (27.0-35.0); MCHC 33.5 g/dL (32.0-36.0); MCV 90.9 fL (80-100); MPV 7.3 fL (7.6-11.3); Monocytes % 6.8 % (3.3-12.3); Neutrophils % 74.7 % (41.7-73.7); Platelets 255 thou/uL (152-406); RBC Red Blood Cell Count 4.14 M/uL (3.86-4.86); Red Cell Distribution Width 14.1 % (12.1-15.2)
--- NOTE | 2024-06-22 11:20 | EDPHYS ---
Physician Documentation [facility] Name: Marilu Walters Age: 64 yrs Sex: Female : 1960 Arrival Date: 06/22/2024 Time: 10:07 Bed 7 Private MD: Cristobal Rodríguez HPI: 06/22 11:11 This 64 yrs old Female presents to ER via Ambulatory with complaints of Lips germaine Swelling. 11:11 The patient presents with redness, swelling. The problem is located in the nose and germaine mouth. Onset: The symptoms/episode began/occurred 7 day(s) ago. Duration: The symptoms are continuous, and are markedly worse than the original presentation. Modifying factors: The symptoms are alleviated by nothing, the symptoms are aggravated by nothing. Associated signs and symptoms: The patient has no apparent associated signs or symptoms. The patient has not experienced similar symptoms in the past. Historical: - Allergies: 10:16 Morphine; iw 10:16 PENICILLINS; iw 10:16 tramadol; iw - PMHx: 10:16 Hypercholesterolemia; depressive disorder; Hypertensive disorder; iw - PSHx: 10:16 back surgery; hysterectomy; R knee meniscus repair; tubal ligation; iw - Immunization history:: Adult Immunizations up to date. - Infectious Disease History:: Denies. - Social history:: Smoking status: . - Family history:: not pertinent. ROS: 11:15 Constitutional: Negative for fever, chills, and weight loss, Eyes: Negative for injury, germaine pain, redness, and discharge, Neck: Negative for injury, pain, and swelling, Cardiovascular: Negative for chest pain, palpitations, and edema, Respiratory: Negative for shortness of breath, cough, wheezing, and pleuritic chest pain, Abdomen/GI: Negative for abdominal pain, nausea, vomiting, diarrhea, and constipation, Back: Negative for injury and pain, : Negative for injury, bleeding, discharge, and swelling, MS/Extremity: Negative for injury and deformity, Neuro: Negative for headache, weakness, numbness, tingling, and seizure, Psych: Negative for depression, anxiety, suicide ideation, homicidal ideation, and hallucinations, Allergy/Immunology: Negative for hives, rash, and allergies, Endocrine: Negative for neck swelling, polydipsia, polyuria, polyphagia, and marked weight changes, Hematologic/Lymphatic: Negative for swollen nodes, abnormal bleeding, and unusual bruising, 11:15 Eyes: Positive for 11:15 ENT: Positive for dental pain, 11:15 Skin: Positive for cellulitis, erythema, swelling, of the mouth, Exam: 11:15 Constitutional: This is a well developed, well nourished patient who is awake, alert, germaine and in no acute distress. Eyes: Pupils equal round and reactive to light, extra-ocular motions intact. Lids and lashes normal. Conjunctiva and sclera are non-icteric and not injected. Cornea within normal limits. Periorbital areas with no swelling, redness, or edema. ENT: Nares patent. No nasal discharge, no septal abnormalities noted. Tympanic membranes are normal and external auditory canals are clear. Oropharynx with no redness, swelling, or masses, exudates, or evidence of obstruction, uvula midline. Mucous membranes moist. Neck: Trachea midline, no thyromegaly or masses palpated, and no cervical lymphadenopathy. Supple, full range of motion without nuchal rigidity, or vertebral point tenderness. No Meningismus. Chest/axilla: Normal chest wall appearance and motion. Nontender with no deformity. No lesions are appreciated. Cardiovascular: Regular rate and rhythm with a normal S1 and S2. No gallops, murmurs, or rubs. Normal PMI, no JVD. No pulse deficits. Respiratory: Lungs have equal breath sounds bilaterally, clear to auscultation and percussion. No rales, rhonchi or wheezes noted. No increased work of breathing, no retractions or nasal flaring. Abdomen/GI: Soft, non-tender, with normal bowel sounds. No distension or tympany. No guarding or rebound. No evidence of tenderness throughout. Back: No spinal tenderness. No costovertebral tenderness. Full range of motion. Female : Normal external genitalia. Skin: Warm, dry with normal turgor. Normal color with no rashes, no lesions, and no evidence of cellulitis. MS/ Extremity: Pulses equal, no cyanosis. Neurovascular intact. Full, normal range of motion., bilateral aka Neuro: Awake and alert, GCS 15, oriented to person, place, time, and situation. Cranial nerves II-XII grossly intact. Motor strength 5/5 in all extremities. Sensory grossly intact. Cerebellar exam normal. Normal gait. Psych: Awake, alert, with orientation to person, place and time. Behavior, mood, and affect are within normal limits. 11:15 Head/face: Noted is erythema, that is moderate, of the mouth, swelling, tenderness, Vital Signs: 10:14 BP 126 / 81; Pulse 95; Resp 19; Temp 98.5; Pulse Ox 99% on R/A; Weight 83.91 kg; Height iw 5 ft. 0 in. ; Pain 7/10; 12:13 BP 154 / 81; Pulse 84; Resp 15; Pulse Ox 98% ; cm10 10:14 Body Mass Index 36.13 (83.91 kg, 152.4 cm) iw 10:14 Pain Scale: Adult iw Procedures: 11:15 I \T\ D: Incision and drainage was performed for an abscess of the mouth Prepped with [facility] Betadine, Anesthetized with 5 ml's 1% Lidocaine w/ Epi. Incised with #11 blade. Drained moderate amount purulent fluid. bloody fluid. Packed with iodoform gauze, Dressing: non-Adherent dressing, the patient tolerated the procedure well. MDM: 10:13 Medical Screening Exam initiated germaine 11:18 Differential diagnosis: dental caries, dental abscess. Data reviewed: vital signs, [facility] nurses notes, lab test result(s). Consideration of Admission/Observation Escalation of care including admission/observation considered. I considered the following discharge prescriptions or medication management in the emergency department Medications were administered in the Emergency Department. See MAR. Test considered but Not performed: X-ray: no ct . Care significantly affected by the following chronic conditions: Hypertension, Obesity. 06/22 10:27 Order name: CBC with Diff [facility] 06/22 10:27 Order name: Comprehensive Metabolic Panel [facility] 06/22 11:39 Order name: Wound Culture cm10 06/22 10:27 Order name: Dressing - Wound; Complete Time: 10:46 [facility] 06/22 10:27 Order name: Gloves, Sterile; Complete Time: 10:46 [facility] 06/22 10:27 Order name: Setup Suture Tray; Complete Time: 10:46 [facility] 06/22 11:10 Order name: Labs - recollect needed: recollect green top; Complete Time: 11:22 bd Administered Medications: 10:46 Drug: Lidocaine Infiltration (1 %) 10 ml 5 ml Infiltration once; to bedside Volume: 5 bp ml; Route: Infiltration; 10:46 Drug: Chnekzut-Ojpoxlyplt-Kxjaioviq Topical Ointment 1 application Topical once Route: bp Topical; Site: affected area; 10:59 Drug: NS 0.9% IV 1000 ml IV at 1000 ml once; to be given as a bolus over 60 minutes cm10 Route: IV; Rate: 1000 ml; Site: right forearm; 11:58 Follow up: Response: No adverse reaction; IV Status: Completed infusion; IV Intake: cm10 1000ml 10:59 Drug: Clindamycin IVPB 900 mg IVPB once over 30 mins; (mix in 50 mL) Route: IVPB; cm10 Infused Over: 30 mins; Site: right forearm; 11:39 Follow up: Response: No adverse reaction; IV Status: Completed infusion; IV Intake: [id number] 11:00 Not Given (Doesn't have a ridee): fentanyl (pf)50 mcg IVP once cm10 11:34 Not Given (Other Intervention Used): ondansetron 4 mg IVP once; over 2 minutes cm10 11:38 Drug: Trimethoprim-Sulfamethoxazole PO (160 mg-800 mg (DS) 1 tablet PO once Route: PO; cm10 11:58 Follow up: Response: No adverse reaction cm10 11:39 Drug: Clindamycin PO 300 mg PO once Route: PO; cm10 11:58 Follow up: Response: No adverse reaction cm10 Disposition Summary: 06/22/24 11:19 Discharge Ordered Notes: Location: Home germaine Problem: new germaine Symptoms: have improved germaine Condition: Stable egrmaine Diagnosis - Cutaneous abscess of face germaine - Cellulitis of face germaine Followup: germaine - With: Private Physician - When: 2 - 3 days - Reason: Recheck today's complaints, Continuance of care, Re-evaluation by your physician Followup: germaine - With: Beth Draper MD - When: 1 - 2 days - Reason: Recheck today's complaints, Re-evaluation by your physician Discharge Instructions: - Discharge Summary Sheet germaine - Skin Abscess germaine - Cellulitis, Adult germaine - Incision and Drainage germaine - Incision and Drainage, Care After germaine Forms: - Medication Reconciliation Form germaine - Antibiotic Education germaine - Prescription Opioid Use germaine - Patient Portal Instructions germaine - Leadership Thank You Letter [facility] Prescriptions: - Centany 2 % Topical ointment - apply 1 application TOPICAL route 3 times per day; 15 gram tube; Refills: 0, germaine Product Selection Permitted - Clindamycin HCl 300 mg Oral capsule - take 1 capsule ORAL route every 6 hours for 7 days; 28 capsule; Refills: 0, [facility] Product Selection Permitted - Bactrim DS 800-160 mg Oral Tablet - take 1 tablet ORAL route every 12 hours for 7 days; 14 tablet; Refills: 0, [facility] Product Selection Permitted - Tylenol-Codeine #3 300mg-30mg Oral tablet - take 1 tablet ORAL route every 4 hours As needed; 16 tablet; Refills: 0, [facility] Product Selection Permitted Signatures: Dispatcher [employer] EDAda Albarran Corey, MD MD cha Williams, Irene, RN RN iw Peltier, Brian, RN RN bp Martinez, Clarissa, RN RN cm10
--- NOTE | 2024-06-22 11:20 | ER ---
Nurse's Notes [facility] Name: Marilu Walters Age: 64 yrs Sex: Female : 1960 Arrival Date: 06/22/2024 Time: 10:07 Bed 7 Private MD: Diagnosis: Cutaneous abscess of face;Cellulitis of face Presentation: 06/22 10:14 Chief complaint: Patient states: thinks something bit her top lip a week ago, it iw started out like a pimple and now there a large knot on left side of top lip , she went to ER and was put on Bactrim and a cream X 5 days. Coronavirus screen: At this time, the client does not indicate any symptoms associated with coronavirus-19. Ebola Screen: No symptoms or risks identified at this time. Initial Sepsis Screen: Does the patient meet any 2 criteria? No. Patient's initial sepsis screen is negative. Does the patient have a suspected source of infection? No. Patient's initial sepsis screen is negative. Risk Assessment: Do you want to hurt yourself or someone else? Patient reports no desire to harm self or others. Onset of symptoms was June 15, 2024. 10:14 Method Of Arrival: Ambulatory iw 10:14 Acuity: ANTONY 3 iw Historical: - Allergies: 10:16 Morphine; iw 10:16 PENICILLINS; iw 10:16 tramadol; iw - PMHx: 10:16 Hypercholesterolemia; depressive disorder; Hypertensive disorder; iw - PSHx: 10:16 back surgery; hysterectomy; R knee meniscus repair; tubal ligation; iw - Immunization history:: Adult Immunizations up to date. - Infectious Disease History:: Denies. - Social history:: Smoking status: . - Family history:: not pertinent. Screenin:42 [facility] ED Fall Risk Assessment (Adult) History of falling in the last 3 months, cm10 including since admission No falls in past 3 months (0 pts) Confusion or Disorientation No (0 pts) Intoxicated or Sedated No (0 pts) Impaired Gait No (0 pts) Mobility Assist Device Used No (0 pt) Altered Elimination No (0 pt) Score/Fall Risk Level 0 - 2 = Low Risk Oriented to surroundings, Maintained a safe environment, Hourly rounding (assess needs \T\ fall precautionary measures) done. Abuse screen: Denies threats or abuse. Denies injuries from another. Nutritional screening: No deficits noted. Tuberculosis screening: No symptoms or risk factors identified. Assessment: 10:35 General: Appears in no apparent distress. uncomfortable, Behavior is calm, cooperative. cm10 Pain: Complains of pain in mouth Pain currently is 7 out of 10 on a pain scale. Neuro: No deficits noted. Level of Consciousness is awake, alert, obeys commands, Oriented to person, place, time, situation, Appropriate for age. Respiratory: No deficits noted. Airway is patent Respiratory effort is even, unlabored, Respiratory pattern is regular, symmetrical. Derm: Abscess located on [place]. 11:39 General: Awaiting labs for discharge. cm10 Vital Signs: 10:14 BP 126 / 81; Pulse 95; Resp 19; Temp 98.5; Pulse Ox 99% on R/A; Weight 83.91 kg; Height iw 5 ft. 0 in. ; Pain 7/10; 12:13 BP 154 / 81; Pulse 84; Resp 15; Pulse Ox 98% ; cm10 10:14 Body Mass Index 36.13 (83.91 kg, 152.4 cm) iw 10:14 Pain Scale: Adult iw ED Course: 10:10 Patient arrived in ED. cj3 10:13 Cristobal Begum MD is Attending Physician. germaine 10:16 Triage completed. iw 10:17 Arm band placed on. iw 10:18 Bonita Vazquez, RN is Primary Nurse. cm10 10:42 Patient has correct armband on for positive identification. Bed in low position. Call cm10 light in reach. Side rails up X 1. Provided Education on: ER process and procedures.. Pulse ox on. NIBP on. 11:00 Assist provider with I \T\ D: of an abscess on Lip Set up I\T\D tray. Performed by Cristobal Begum MD Culture sent to lab. Wound packed. iodoform gauze, Patient tolerated well. 11:24 Beth Draper MD is Referral Physician. germaine 11:58 Wound Culture Sent. cm10 12:14 IV discontinued, intact, bleeding controlled, No redness/swelling at site. Pressure cm10 dressing applied. Administered Medications: 10:46 Drug: Lidocaine Infiltration (1 %) 10 ml 5 ml Infiltration once; to bedside Volume: 5 bp ml; Route: Infiltration; 10:46 Drug: Lbvzrmck-Kvgoyugmij-Vikdywuko Topical Ointment 1 application Topical once Route: bp Topical; Site: affected area; 10:59 Drug: NS 0.9% IV 1000 ml IV at 1000 ml once; to be given as a bolus over 60 minutes cm10 Route: IV; Rate: 1000 ml; Site: right forearm; 11:58 Follow up: Response: No adverse reaction; IV Status: Completed infusion; IV Intake: cm10 1000ml 10:59 Drug: Clindamycin IVPB 900 mg IVPB once over 30 mins; (mix in 50 mL) Route: IVPB; cm10 Infused Over: 30 mins; Site: right forearm; 11:39 Follow up: Response: No adverse reaction; IV Status: Completed infusion; IV Intake: [id number] 11:00 Not Given (Doesn't have a ridee): fentanyl (pf)50 mcg IVP once cm10 11:34 Not Given (Other Intervention Used): ondansetron 4 mg IVP once; over 2 minutes cm10 11:38 Drug: Trimethoprim-Sulfamethoxazole PO (160 mg-800 mg (DS) 1 tablet PO once Route: PO; cm10 11:58 Follow up: Response: No adverse reaction cm10 11:39 Drug: Clindamycin PO 300 mg PO once Route: PO; cm10 11:58 Follow up: Response: No adverse reaction cm10 Medication: 10:42 VIS not applicable for this client. cm10 Intake: 11:39 IV: 50ml; Total: 50ml. cm10 11:58 IV: 1000ml; Total: 1050ml. cm10 Outcome: 11:19 Discharge ordered by . germaine 12:15 Discharged to home ambulatory, cm10 12:15 Condition: good 12:15 Discharge instructions given to patient, Instructed on discharge instructions, follow up and referral plans. medication usage, wound care, Demonstrated understanding of instructions, follow-up care, medications, wound care, Prescriptions given X 4, 12:15 Patient left the ED. cm10 Signatures: Cristobal Begum MD MD cha Williams, Irene, RN ANATOLIY Gael Morales RN RN bp Martinez, Clarissa, RN RN cm10 Haylie Anderson cj3 Corrections: (The following items were deleted from the chart) 10:16 10:14 BP 126 / 81; Pulse 95bpm; Resp 19bpm; Pulse Ox 99% RA; Temp 98.5F; iw iw
[2024-06-22] MEDS ORDERED: SMZ./TMP. 800/160 MG TABLET ONE (11:37)
[2024-06-22 11:53] LABS: Albumin 3.6 g/dL (3.4-5.0); Albumin/Globulin Ratio 0.9 (1.1-1.8); Anion Gap 9.6 mEq/L (5.0-15.0); Bilirubin Total 0.4 mg/dL (0.2-1.0); Globulin 4.2 g/dL (2.3-3.5); Potassium 3.6 mEq/L (3.5-5.1); Protein, Total 7.8 g/dL (6.4-8.2)
[2024-06-22 12:25] VITALS: TEMP 98.5
[2024-06-22 12:26] VITALS: BP 154/81; O2SAT 98
== END 2024-06-22 12:15 | disposition home or self-care (01) ==
LOC: ER 10:07
PROC: 0H91XZZ Drainage of Face Skin, External Approach (ICD-10-PCS; principal; 2024-06-22)
DX: L02.01 Cutaneous abscess of face (principal); L03.211 Cellulitis of face
CPT/HCPCS: 96365; 87070; 85025; 36415; 87205; 80053; 99284; 10060; J3010; J7030; 87077; 87186; J2003; J2405